=== PATIENT | female | born 1955 | race Caucasian/White ===

== ENCOUNTER 2019-10-28 13:02 | Outpatient (CLI) | payer OTHER, SELFPAY ==
--- NOTE | ~2019-10-28 | US_ITS ---
US breast LT limited 10/28/2019 14:08 Indication: Follow-up left breast ducts Procedure: High-resolution Limited ultrasound of the left breast Comparison: Comparison to multiple prior studies sequentially, with oldest reviewed study dated 07/24. Findings: Stable appearance to mildly prominent subareolar ducts, some of which contain debris. No matias spicious masses, calcifications or architectural distortion to suggest malignancy. Impression: 1: No sonographic evidence for malignancy. Stable appearance to mildly prominent subareolar ducts. BI-RADS CATEGORY 2 - BENIGN FINDINGS Routine yearly screening mammogram and regular clinical breast examination are recommended. Reviewed, dictated and finalized at location A. Impression: 1: No sonographic evidence for malignancy. Stable appearance to mildly prominen t subareolar ducts. BI-RADS CATEGORY 2 - BENIGN FINDINGS Routine yearly screening mammogram and regular clinical breast examination are recommended.
== END 2019-10-28 13:03 | disposition home or self-care (01) ==
DX: N64.89 Other specified disorders of breast (principal)
CPT/HCPCS: 76642

== ENCOUNTER 2020-09-04 11:15 | Outpatient (CLI) | payer OTHER, SELFPAY ==
--- NOTE | ~2020-09-04 | MMUS_ITS ---
EXAMINATION: MM diagnostic caio BI w caitlin, US breast LT complete HISTORY: Left axillary lump TECHNIQUE: Bilateral full field and left spot ML, MLO and craniocaudal 3-D tomosynthesis images were performed and synthetic 2-D images were generated. CAD analysis was submitted and interpreted. High r esolution complete left breast and left axillary ultrasound examination was performed. COMPARISON: 10/28/2019 limited left breast ultrasound 04/16/2020 diagnostic bilateral digital mammogram and limited left breast ultrasound examination BREAST PARENCHYMAL COMPOSITION: There are scattered areas of fibroglandular density. FINDINGS: MAMMOGRAPHIC FINDINGS: No interval suspicious mass, architectural distortion, malignant calcification, skin thickening or re traction or significant new or developing density since 04/16/2019 is detected. No suspicious left axi llary mass lesion is noted. ULTRASOUND: There is a lymph node in the axillary area at 1:00, measuring 5 x 7.4 mm, with thin uniform cortex, p rominent fatty hilum. Some prominent ducts are noted in the subareolar area but are diminished in prominence compared to pr ior examinations. No left breast or axillary suspicious mass or suspicious shadowing is detected. IMPRESSION: 1. Benign findings 2. No mammographic evidence of malignancy BI-RADS Category 2: Benign finding(s). Reviewed, dictated and finalized at location A. IMPRESSION: 1. Benign findings 2. No mammographic evidence of malignancy BI-RADS Category 2: Benign finding(s).
== END 2020-09-04 11:16 | disposition home or self-care (01) ==
DX: R92.8 Other abnormal and inconclusive findings on diagnostic imaging of breast (principal)
CPT/HCPCS: 76641; 77062; 77066; G0279

== ENCOUNTER 2020-11-11 13:14 | Outpatient (CLI) | payer OTHER, SELFPAY ==
--- NOTE | 2020-11-12 08:10 | PFT_ITS ---
This report was moved to the correct visit, [id number] on 11/27/20. Original report was signed by Gunner Fay MD 11/12/20 08. PFT Procedure Performed PFT Procedure Performed Spirometry with Pre/Post Bronchodilator Plethysmography (Lung Vol) Diffusing Cap (DLCO) Flow Vol Loop PFT Interpretation This is a pulmonary function test with pre and post-bronchodilator spirometry, plethysmography and diffusing capacity. The test was performed and results interpreted in accordance with the 2019 and 2005 ATS/ERS Task Force guidelines respectively using the Global Lung Function Initiative-2012 reference equations. Patient demonstrated good effort and cooperation. Reproducibility criteria were met. The quality of the pre bronchodilator spirometry maneuver was Grade B and post bronchodilator spirometry maneuver was Grade A. Findings: Spirometry: the contour the inspiratory and expiratory flow tracing are normal. The pre bronchodilator FVC is 2.00 L, 70% predicted. The pre bronchodilator FEV1 is 1.62 L, 72% predicted. The FEV1: FVC ratio was 81%. The post bronchodilator FVC is 1.96 L, representing a 2% decrease. The post bronchodilator FEV1 is 1.46 L, representing a 10% decrease. Plethysmography: The total lung capacity is 4.18 L, 89% predicted. Functional residual capacity is 2.06 L, 77% predicted. The residual volume is 2.04 L, 105% predicted. Diffusing capacity: The absolute diffusion capacity is 14.8, 73% predicted. The diffusing capacity corrected for alveolar volume is 5.00, 111% predicted. Impression: The spirometry is normal without evidence of an obstructive abnormality. The lung volumes are normal without evidence of and restrictive abnormality. The FVC and FEV1 are mildly decreased without an obstructive or restrictive abnormality. This is an abnormal but nonspecific finding. There is no significant improvement after inhaling a single dose of albuterol. The diffusing capacity is normal. There are no prior studies for comparison This dictation may have been done utilizing a voice recognition system. Attempts have been made to correct errors. However, there may be uncorrected grammatical, spelling, and recognition errors present. Report Initialized date/time: Gunner Fay MD 11/12/20809 Electronically signed by: Gunner Fay MD 11/12/20 0810 [facility]
--- NOTE | 2020-11-12 08:10 | PFT_ITS ---
This report was moved to the correct visit, [id number] on 11/27/20. Original report was signed by Gunner Fay MD 11/12/20 0810. ADDENDUM Disregard this report it was done in error. Addendum Documented By: Gunner Fay MD 11/27/20 1412 Addendum Signed By: <Electronically signed by Gunner Fay MD>11/27 1412 PFT Procedure Performed PFT Procedure Performed Spirometry with Pre/Post Bronchodilator Plethysmography (Lung Vol) Diffusing Cap (DLCO) Flow Vol Loop PFT Interpretation This is a pulmonary function test with pre and post-bronchodilator spirometry, plethysmography and diffusing capacity. The test was performed and results interpreted in accordance with the 2019 and 2005 ATS/ERS Task Force guidelines respectively using the Global Lung Function Initiative-2012 reference equations. Patient demonstrated good effort and cooperation. Reproducibility criteria were met. The quality of the pre bronchodilator spirometry maneuver was Grade B and post bronchodilator spirometry maneuver was Grade A. Findings: Spirometry: the contour the inspiratory and expiratory flow tracing are normal. The pre bronchodilator FVC is 2.00 L, 70% predicted. The pre bronchodilator FEV1 is 1.62 L, 72% predicted. The FEV1: FVC ratio was 81%. The post bronchodilator FVC is 1.96 L, representing a 2% decrease. The post bronchodilator FEV1 is 1.46 L, representing a 10% decrease. Plethysmography: The total lung capacity is 4.18 L, 89% predicted. Functional residual capacity is 2.06 L, 77% predicted. The residual volume is 2.04 L, 105% predicted. Diffusing capacity: The absolute diffusion capacity is 14.8, 73% predicted. The diffusing capacity corrected for alveolar volume is 5.00, 111% predicted. Impression: The spirometry is normal without evidence of an obstructive abnormality. The lung volumes are normal without evidence of and restrictive abnormality. The FVC and FEV1 are mildly decreased without an obstructive or restrictive abnormality. This is an abnormal but nonspecific finding. There is no significant improvement after inhaling a single dose of albuterol. The diffusing capacity is normal. There are no prior studies for comparison This dictation may have been done utilizing a voice recognition system. Attempts have been made to correct errors. However, there may be uncorrected grammatical, spelling, and recognition errors present. Report Initialized date/time: Gunner Fay MD 11/12/20809 Electronically signed by: Gunner Fay MD 11/12/20809 [facility]
== END 2020-11-11 13:15 | disposition home or self-care (01) ==
PROVIDERS: PCP Internal Medicine Pulmonary Disease; Visit Provider Internal Medicine Pulmonary Disease
DX: R06.00 Dyspnea, unspecified (principal)
CPT/HCPCS: 94060; 94726; 94729

== ENCOUNTER 2021-03-11 11:39 | Emergency (ER) | payer OTHER, SELFPAY ==
[2021-03-11 11:53] VITALS: BP 143/70; PULSE 84; RESP 18; TEMP 37.4; O2SAT 99
--- NOTE | 2021-03-11 12:16 | ED.URI ---
HPI - URI/Sore Throat General Chief Complaint: Upper Respiratory Infection Stated Complaint: Chest congestion Time Seen by Provider: 03/11/21 12:02 Source: patient and RN notes reviewed Mode of arrival: ambulatory Limitations: no limitations History of Present Illness HPI Narrative: Patient presents today complaining of a 5 to 6-day history of productive cough, sore throat, congestion. Denies nasal congestion, rhinorrhea, shortness of breath, loss of taste or smell. She has been using Sudafed, convincing, ibuprofen, and gargling with salt water. Reports symptoms have been improving slightly with these interventions. She has been vaccinated against COVID-19. She takes care of her with cancer at home and states she would like a COVID-19 test. MD elicited complaint: cough Related Data Home Medications Medication Instructions Recorded Confirmed cetirizine 10 mg tablet 10 mg PO DAILY 06/30/20 03/11/21 levothyroxine 75 mcg tablet 75 mcg PO DAILY 06/30/20 03/11/21 pantoprazole 40 mg tablet,delayed 40 mg PO QAM 06/30/20 03/11/21 release valacyclovir 500 mg tablet 500 mg PO DAILY 06/30/20 03/11/21 Allergies Allergy/AdvReac Type Severity Reaction Status Date / Time mycins upset stomach AdvReac Mild states Uncoded 03/11/21 11:59 mycins upset stomach Review of Systems Review of Systems: CONSTITUTIONAL: Denies body aches, fever, chills, or sweats. EYES: Denies visual changes, redness, or discharge. ENT: Denies rhinorrhea, congestion, or otalgia.+ Sore throat CARDIOVASCULAR: Denies chest pain, palpitations, or edema. RESPIRATORY: Denies dyspnea.+ Cough, chest congestion GASTROINTESTINAL: Denies abdominal pain, nausea, vomiting, or diarrhea. GENITOURINARY: Denies dysuria or hematuria. SKIN: Denies rash, itching, or wounds. MUSCULOSKELETAL: Denies back pain, joint pain, or myalgia. NEUROLOGIC: Denies headache, numbness, tingling, or weakness. PSYCH: Denies depression or anxiety. [facility] Past Medical History Medical History Herpesviral infection of urogenital system, unspecified Hypothyroidism, unspecified Needs flu shot Overweight (11/10/16) Plantar fasciitis of left foot Rash and nonspecific skin eruption Rhinitis, chronic Family History Family History Mother Patient's mother is in good health Father Patient's father is in good health Sibling Patient's sister is in good health Patient's brother is in good health Patient's sister is Social History Social History Smoking status: Never smoker Comments At time of signature, I have reviewed and agree with nursing past medical, surgical, social and family history unless otherwise noted. Please see nursing chart for further information. There is no relevant family history pertinent to the presenting complaint Exam Narrative: GENERAL: Well-appearing, well-nourished, and in no acute distress. HEAD: Normocephalic, atraumatic. EYES: EOMI. No redness or drainage. Conjunctivae normal. ENT: Mucous membranes pink and moist. Nares clear. No rhinorrhea. TMs normal bilaterally. Throat mildly erythematous without edema or exudate. Uvula midline. NECK: Normal AROM. Supple. No lymphadenopathy. CHEST: No respiratory distress. Clear to auscultation. HEART: Regular rate and rhythm. No murmur appreciated. Normal peripheral pulses. EXTREMITIES: Normal range of motion. No edema. SKIN: Warm, dry, no rash. Capillary refill normal. Normal skin turgor. NEURO: No focal deficits. Alert and oriented x3. Gait steady. PSYCH: Normal affect. No signs of depression or anxiety. Course Vital Signs Vital signs: Vital Signs Temperature 99.4 F 03/11/21 11:53 Pulse Rate 84 03/11/21 11:53 Respiratory Rate 18 03/11/21 11:53 Blood Pressure 143/70 H 02/24
== END 2021-03-11 12:49 | disposition home or self-care (01) ==
PROVIDERS: Emergency Provider Nurse Practitioner
DX: J40 Bronchitis, not specified as acute or chronic (principal); J06.9 Acute upper respiratory infection, unspecified; Z20.822 Contact with and (suspected) exposure to COVID-19; E03.9 Hypothyroidism, unspecified
CPT/HCPCS: 87426; 99213; C9803; G0463

== ENCOUNTER 2021-10-18 09:59 | Outpatient (CLI) | payer OTHER, SELFPAY ==
--- NOTE | ~2021-10-18 | MM_ITS ---
EXAMINATION: MM screening caio BI w caitlin HISTORY: Screening mammogram TECHNIQUE: Craniocaudal and mediolateral oblique 3-D tomosynthesis images were obtained and synthetic 2-D images were generated. CAD analysis was submitted and interpreted. COMPARISON: 09/04/2020 bilateral diagnostic mammography and complete left breast ultrasound BREAST PARENCHYMAL COMPOSITION: There are scattered areas of fibroglandular density. FINDINGS: There is no evidence of suspicious mass, calcification, or architectural distortion to sugg est malignancy in either breast. There has been no suspicious interval change. IMPRESSION: 1. No mammographic evidence of malignancy. 2. Recommend routine screening mammography in one year. BI-RADS Category 1: Negative Reviewed, dictated and finalized at location A.
== END 2021-10-18 10:00 | disposition home or self-care (01) ==
LOC: ANHIMG 10:01
DX: Z12.31 Encounter for screening mammogram for malignant neoplasm of breast (principal)
CPT/HCPCS: 77063; 77067

== ENCOUNTER 2022-05-13 07:56 | Outpatient (CLI) | payer MEDICARE, OTHER, SELFPAY ==
[2022-05-13 08:30] LABS: Appearance Urine Clear (Clear); Bilirubin Urine Negative (Negative); Blood Urine Negative (Negative); Color Urine Yellow (Yellow); Glucose Urine UA Negative (Negative); Ketones Urine Negative (Negative); Leukocyte Esterase Ur Trace LEU/UL (NEGATIVE); Nitrate Urine Negative (Negative); Protein Urine Negative (Negative); Specific Grav Ur 1.015 (1.001-1.035); Urobilinogen Urine 0.2 mg/dL (<2.0)
[2022-05-13 08:30] LABS: Hematocrit 44.3 % (37.0-47.0); Hemoglobin 14.5 g/dL (12.0-15.0); Mean Corpuscular HGB Conc 32.7 g/dl (32-36); Mean Corpuscular Hemoglobin 29.6 pg (26-34); Mean Corpuscular Volume 90.4 fl (80-100); Mean Platelet Volume 10.7 fl (7.4-10.4); Platelet Count Result 277 k/mm3 (150-375); Red Cell Distribution Width 13.3 % (11.5-14.5); White Blood Count 7.3 K/mm3 (4.5-10.0)
[2022-05-13 08:46] LABS: Mucus Urine Rare /lpf; RBC Urine 0-2 /hpf (0-2); Squamous Epithelial Cell Urine Rare /hpf (Few)
[2022-05-13 08:46] LABS: Alanine Aminotransferase 26 U/L (6-35); Albumin Level 4.4 g/dL (3.5-5.1); Alkaline Phosphatase 72 U/L (38-126); Anion Gap 4 mmol/L (8-16); Aspartate Amino Transferase 26 U/L (14-36); Bilirubin,Total 0.7 mg/dL (0.2-1.3); Blood Urea Nitrogen 13 mg/dL (7-17); Calcium 8.9 mg/dL (8.4-10.2); Carbon Dioxide 32 mmol/L (22-30); Chloride 102 mmol/L (98-107); Cholesterol 204 mg/dL (0-200); Estimated Glomerular Filt Rate > 60; Glucose 89 mg/dL (65-110); HDL Direct 46 mg/dL; Sodium 138 mmol/L (137-145); Triglycerides 121 mg/dL (<150)
[2022-05-13 08:57] LABS: LDL Cholesterol Direct 107 mg/dL
[2022-05-13 08:58] LABS: Add Urine Microscopic? YES
== END 2022-05-13 07:57 | disposition home or self-care (01) ==
PROVIDERS: PCP Family Medicine; Visit Provider Family Medicine
DX: R07.89 Other chest pain (principal); I10 Essential (primary) hypertension; E03.9 Hypothyroidism, unspecified; E78.5 Hyperlipidemia, unspecified
CPT/HCPCS: 36415; 80053; 80061; 81001; 84443; 85027

== ENCOUNTER 2022-08-18 10:21 | Emergency (ER) | payer MEDICARE, OTHER, SELFPAY ==
[2022-08-18 10:31] VITALS: BP 134/82; PULSE 90; RESP 18; TEMP 37.4; O2SAT 100
--- NOTE | 2022-08-18 10:42 | ED.URI ---
HPI - URI/Sore Throat General Chief Complaint: Upper Respiratory Infection Stated Complaint: unknown Source: patient and RN notes reviewed Mode of arrival: ambulatory Limitations: no limitations History of Present Illness HPI Narrative: 67-year-old female presents concern for 4 day history of sneezing, runny nose, postnasal drainage, sinus congestion, facial and forehead pain, ear pain. Reports low-grade temperature. Reports she took multi symptom cold medicines and Sudafed with some relief of her facial pain. She reports she took a COVID test that was negative MD elicited complaint: nasal congestion and sinus pain Related Data Home Medications Medication Instructions Recorded Confirmed cetirizine 10 mg tablet (Zyrtec) 10 mg PO DAILY 06/30/20 08/18/22 levothyroxine 75 mcg tablet 75 mcg PO DAILY 06/30/20 08/18/22 (Synthroid) pantoprazole 40 mg tablet,delayed 40 mg PO QAM 06/30/20 08/18/22 release valacyclovir 500 mg tablet 500 mg PO DAILY 06/30/20 08/18/22 Allergies Allergy/AdvReac Type Severity Reaction Status Date / Time mycins upset stomach AdvReac Mild states Uncoded 08/18/22 10:35 mycins upset stomach Review of Systems Review of Systems: CONSTITUTIONAL: Reports malaise, low-grade fever. EYES: Denies visual changes, redness, or discharge. ENT: Reports rhinorrhea, congestion, sinus pain, otalgia CARDIOVASCULAR: Denies chest pain, palpitations, or edema. RESPIRATORY: Reports cough. Denies dyspnea. GASTROINTESTINAL: Denies abdominal pain, nausea, vomiting, diarrhea SKIN: Denies rash or itching. MUSCULOSKELETAL: Denies myalgia. NEUROLOGIC: Reports headache. All systems reviewed & are unremarkable except as noted in HPI and below [facility] Past Medical History Medical History Herpesviral infection of urogenital system, unspecified Hypothyroidism, unspecified Kidney stones Needs flu shot Overweight (02/04/16) Plantar fasciitis of left foot Rash and nonspecific skin eruption Rhinitis, chronic Surgical History Surgical History History of delivery x2 History of conization of cervix Family History Family History Mother Hairy cell leukemia Hypertension Father Patient's father is in good health Sibling Hypertension Diabetes mellitus Social History Social History Smoking status: Never smoker Alcohol intake: never Substance use: never Living arrangements: with family Occupation/Education: retired Gender identity (if verbalized by the patient): Female Sexual Orientation (if Verbalized by the Patient): Straight or Heterosexual Spiritual care concerns: No Comments At time of signature, agree with nursing past medical, surgical, social and family history. There is no relevant family history pertinent to the presenting complaint Exam Narrative: GENERAL: Well-appearing, well-nourished, and in no acute distress. HEAD: Normocephalic EYES: PERRLA, conjunctivae clear ENT: Nares clear, turbinates edematous and erythematous, clear discharge. Mucous membranes moist. Right tM pearly mullen with dull light reflex, left TM erythematous; no tragal tenderness. Oropharynx not erythematous without lesions. Tonsils not enlarged and without exudate, no drooling, no hoarseness, no trismus, uvula midline. NECK: Supple. No lymphadenopathy CHEST: Clear to auscultation, breath sounds equal. No wheezing, rhonchi, rales, or stridor. No respiratory distress, speaks in full sentences. HEART: Regular rate and rhythm. No murmur heard. SKIN: Warm, dry, no rash. NEURO: Alert and oriented x3. PSYCH: Normal mood and affect Course Course Emergency Course: Patient is aware of diagnosis, understands and agrees to treatment plan. Anticipatory guidance given.
== END 2022-08-18 11:05 | disposition home or self-care (01) ==
PROVIDERS: Emergency Provider Nurse Practitioner; PCP Family Medicine
DX: J06.9 Acute upper respiratory infection, unspecified (principal); H66.002 Acute suppurative otitis media without spontaneous rupture of ear drum, left ear; E03.9 Hypothyroidism, unspecified
CPT/HCPCS: 99213; G0463

== ENCOUNTER 2022-12-21 14:16 | Outpatient (CLI) | payer MEDICARE, OTHER, SELFPAY ==
[2022-12-21 15:48] LABS: Alanine Aminotransferase 43 U/L (6-35); Albumin Level 4.7 g/dL (3.5-5.1); Alkaline Phosphatase 65 U/L (38-126); Anion Gap 7 mmol/L (8-16); Aspartate Amino Transferase 36 U/L (14-36); Bilirubin,Total 0.5 mg/dL (0.2-1.3); Blood Urea Nitrogen 15 mg/dL (7-17); Calcium 9.3 mg/dL (8.4-10.2); Carbon Dioxide 29 mmol/L (22-30); Chloride 102 mmol/L (98-107); Estimated Glomerular Filt Rate > 60; Glucose 88 mg/dL (65-110); Sodium 138 mmol/L (137-145); Thyroid Stimulating Hormone 0.675 uIU/mL (0.465-4.680)
== END 2022-12-21 14:17 | disposition home or self-care (01) ==
LOC: ANHLAB 14:17
PROVIDERS: PCP Family Medicine; Visit Provider Family Medicine
DX: E03.9 Hypothyroidism, unspecified (principal); I10 Essential (primary) hypertension
CPT/HCPCS: 36415; 80053; 84443

== ENCOUNTER 2023-01-05 10:02 | Outpatient (CLI) | payer MEDICARE, OTHER, SELFPAY ==
--- NOTE | ~2023-01-05 | MM_ITS ---
EXAMINATION: MM screening caio BI w caitlin HISTORY: Screening mammogram TECHNIQUE: Craniocaudal and mediolateral oblique 3-D tomosynthesis images were obtained and synthetic 2-D images were generated. CAD analysis was submitted and interpreted. COMPARISON: 10/18/2021, 09/04/2020, 04/16/2019 BREAST PARENCHYMAL COMPOSITION:There are scattered areas of fibroglandular density. FINDINGS: No suspicious mass, calcification, or architectural distortion are identified in either jamarcus ast to suggest malignancy. There has been no suspicious interval change. IMPRESSION: No mammographic evidence of malignancy. Recommend routine screening mammography in one year. BI-RADS Category 1: Negative Reviewed, dictated and finalized at location .
== END 2023-01-05 10:03 | disposition home or self-care (01) ==
PROVIDERS: PCP Family Medicine; Visit Provider Nurse Practitioner
DX: Z12.31 Encounter for screening mammogram for malignant neoplasm of breast (principal)
CPT/HCPCS: 77063; 77067

== ENCOUNTER 2023-02-21 09:42 | Outpatient (CLI) | payer MEDICARE, OTHER, SELFPAY ==
--- NOTE | ~2023-02-21 | DEXA_ITS ---
Bone Density Report Name: NAYELI RICO Age: 68 Sex: Female Ethnicity: White Date of : 1955 Indication: postmenopausal; screening for osteoporosis; height loss; Referring Provider: OFE, CALOS Study: Bone densitometry was performed. Exam Date: February 21, 2023 Accession number: [id number] Bone Density: Region BMD T-score Z-score Classification AP Spine(L1, L4) 0.840 -1.8 0.0 Osteopenia Femoral Neck (Left) 0.595 -2.3 -0.7 Osteopenia Total Hip (Left) 0.792 -1.2 0.1 Osteopenia Femoral Neck (Right) 0.576 -2.5 -0.9 Osteoporosis Total Hip (Right) 0.731 -1.7 -0.5 Osteopenia Total Hip Mean 0.761 -1.5 -0.2 Osteopenia World Health Organization criteria for BMD impression classify patients as: Normal (T-score at or above -1.0), Osteopenia (T-score between -1.0 and -2.5), or Osteoporosis (T-score at or below -2.5). 10-year Fracture Risk: FRAX not reported because: Some T-score for Spine Total or Hip Total or Femoral Neck at or below -2.5 Clinical Information Provided by Patient: Has used the following medications: Vitamin D Patient maximum height was 63 Menopause Age: 55 No regular weight bearing exercise Does not regularly consume dairy products Drinks caffeinated beverages Onset of menses at age 17 Number of children 2 Impression: The patient has osteoporosis, based on the Right Femoral Neck T-score. Discussion: INCREASED RISK OF FRACTURE. BONE DENSITY IS UNDESIRABLY LOW AT ONE OR MORE SKELETAL SITES, CONSISTENT WITH POSTMENOPAUSAL OSTEOPOROSIS. This patient's lowest T-score meets the World Health Organization's (WHO) criteria for osteoporosis at one or more sites (T-score -2.5 or below). In untreated patients, the risk of osteoporotic fracture increases approximately two-fold for each 1.0 SD decrease in T-score. Low bone density is not the only risk factor for fracture; also consider factors such as patient's age, frailty or poor health, risk of falling, risk of injury, previous osteoporotic fracture, family history of osteoporosis, cigarette smoking, low body weight, etc. Not everyone with low bone mineral density has osteoporosis; osteomalacia and other metabolic bone disorders should also be considered. Patients who have osteoporosis should be evaluated for specific diseases and conditions (secondary causes) that may cause or contribute to bone loss. The [place] [employer]ocrinologists (AACE) and National Osteoporosis Foundation (NOF) recommend pharmacologic intervention for all postmenopausal women whose T-score is in this range. The patient should follow a healthful lifestyle (good nutrition with adequate calcium and vitamin D, and appropriate weight-bearing exercise). Follow-Up: Consider a repeat BMD and Vertebral Fracture Assessment (VFA) exam in 2 ye
== END 2023-02-21 09:43 | disposition home or self-care (01) ==
PROVIDERS: PCP Family Medicine; Visit Provider Nurse Practitioner
DX: Z78.0 Asymptomatic menopausal state (principal); M85.88 Other specified disorders of bone density and structure, other site; M85.852 Other specified disorders of bone density and structure, left thigh; M85.851 Other specified disorders of bone density and structure, right thigh; M81.0 Age-related osteoporosis without current pathological fracture
CPT/HCPCS: 77080

== ENCOUNTER 2023-02-24 00:51 | Day surgery (SDC) | payer MEDICARE, OTHER, SELFPAY ==
[2023-02-08 09:13] VITALS: BMI 27.3
--- NOTE | 2023-02-22 09:46 | SUR.PREOP ---
Patient called regarding upcoming procedure. Reviewed preop instructions, appointment times, and procedure prep.
--- NOTE | 2023-02-23 14:01 | PM.HPGS ---
History of Present Illness History of Present Illness Consent: Risks, benefits, and alternatives have been discussed and questions answered. Patient agrees to proceed with procedure. Chief complaint: neoplasm screening Narrative: Alana Mejia is a 68 year old female here for colon cancer screening.She has had polyps removed in the past. Last colonoscopy was 3 years ago. Her sister who has annual colonoscopies for polyps actually was recently found to have colon cancer. Review of Systems Review of Systems: All systems reviewed & are unremarkable except as noted in HPI and below PMF[facility] Past Medical History Medical History Herpesviral infection of urogenital system, unspecified Hypertension Hypothyroidism, unspecified Kidney stones Needs flu shot Overweight (02/04/16) Plantar fasciitis of left foot Rash and nonspecific skin eruption Rhinitis, chronic Surgical History Surgical History History of delivery x2 History of conization of cervix Family History Family History Mother Hairy cell leukemia Hypertension Father Patient's father is in good health Sibling Hypertension Diabetes mellitus Social History Social History Smoking status: Never smoker Alcohol intake: never Substance use: never Substance use type: does not use Living arrangements: with family Occupation/Education: retired Gender identity (if verbalized by the patient): Female Sexual Orientation (if Verbalized by the Patient): Straight or Heterosexual Spiritual care concerns: No Meds Home Medications and Allergies Home Medications Medication Instructions Recorded Confirmed Type cetirizine 10 mg tablet (Zyrtec) 10 mg PO DAILY 06/30/20 02/08/23 History levothyroxine 75 mcg tablet 75 mcg PO DAILY 06/30/20 02/08/23 History (Synthroid) pantoprazole 40 mg tablet,delayed 40 mg PO QAM 06/30/20 02/08/23 History release valacyclovir 500 mg tablet 500 mg PO DAILY 06/30/20 02/08/23 History albuterol sulfate 90 mcg/actuation 1 puff inhalation DAILY PRN 02/08/23 02/08/23 History aerosol inhaler Shortness Of Breath Or Wheezing ascorbate calcium (vitamin C) 500 500 mg PO DAILY 02/08/23 02/08/23 History mg tablet cholecalciferol (vitamin D3) 50 50 mcg PO DAILY 02/08/23 02/08/23 History mcg (2,000 unit) capsule (Vitamin D3) Allergies Allergy/AdvReac Type Severity Reaction Status Date / Time mycins upset stomach AdvReac Mild states Uncoded 02/08/23 09:08 mycins upset stomach Exam Resp: Auscultation: clear to auscultation bilaterally Cardio: Rate: regular rate Rhythm: regular rhythm GI: GI Palp: Yes Soft to palpation and No Tenderness to palpation present (GI) Assessment and Plan Assessment and plan (1) Colon cancer screening: Code(s): Z12.11 - Encounter for screening for malignant neoplasm of colon Status: Acute Assessment and Plan: Colonoscopy with possible biopsy or polypectomy or cautery or injection of substances.
[2023-02-24 09:33] VITALS: BP 148/80; PULSE 95; RESP 20; TEMP 36.9; O2SAT 98; BMI 27.3
[2023-02-24] MEDS: LACTATED RINGERS 1,000 ML 150 ML IV CONT (09:46)
--- NOTE | 2023-02-24 09:48 | WPDANESEPPF ---
Anes - Initial Pre Proc Eval Procedure: Operation Date: 02/24/23 10:30 Proposed Procedures p Screening Colonoscopy - Fernando Bullard MD Date/Time: 02/24/23 09:48 Surgeon: Fernando Bullard MD Pre Op Diagnosis: neoplasm screening Patient Data Age: 68 Gender: F Height: 1.57 m Weight: 67.8 kg Last Vital Signs Temp 98.4 F 02/24/23 09:33 Pulse 95 02/24/23 09:33 Resp 20 02/24/23 09:33 BP 148/80 H 02/24/23 09:33 Pulse Ox 98 02/24/23 09:33 O2 Del Method Room Air 02/24/23 09:33 Allergies Allergy/AdvReac Type Severity Reaction Status Date / Time mycins upset stomach AdvReac Mild states Uncoded 02/08/23 09:08 mycins upset stomach Home Medications Medication Instructions Recorded Confirmed Type cetirizine 10 mg tablet (Zyrtec) 10 mg PO DAILY 06/30/20 02/08/23 History levothyroxine 75 mcg tablet 75 mcg PO DAILY 06/30/20 02/08/23 History (Synthroid) pantoprazole 40 mg tablet,delayed 40 mg PO QAM 06/30/20 02/08/23 History release valacyclovir 500 mg tablet 500 mg PO DAILY 06/30/20 02/08/23 History albuterol sulfate 90 mcg/actuation 1 puff inhalation DAILY PRN 02/08/23 02/08/23 History aerosol inhaler Shortness Of Breath Or Wheezing ascorbate calcium (vitamin C) 500 500 mg PO DAILY 02/08/23 02/08/23 History mg tablet cholecalciferol (vitamin D3) 50 50 mcg PO DAILY 02/08/23 02/08/23 History mcg (2,000 unit) capsule (Vitamin D3) Patient hx anesthesia problems: none Family hx anesthesia problems: none Results Review: All pre-operative results and documents have been reviewed as part of the pre-operative evaluation. [facility] Past Medical History Medical History (Updated 02/23/23 @ 14:01 by Fernando Bullard MD) Herpesviral infection of urogenital system, unspecified Hypertension Hypothyroidism, unspecified Kidney stones Needs flu shot Overweight (02/04/16) Plantar fasciitis of left foot Rash and nonspecific skin eruption Rhinitis, chronic Surgical History Surgical History History of delivery x2 History of conization of cervix Family History Family History Mother Hairy cell leukemia Hypertension Father Patient's father is in good health Sibling Hypertension Diabetes mellitus Social History Social History Smoking status: Never smoker Alcohol intake: never Substance use: never Substance use type: does not use Living arrangements: with family Occupation/Education: retired Gender identity (if verbalized by the patient): Female Sexual Orientation (if Verbalized by the Patient): Straight or Heterosexual Spiritual care concerns: No Anes - Eval Final PreProcedure Day of Procedure 02/24/23 09:48 Patient weight: normal Heart: regular rate and rhythm Lungs: clear to auscultation Airway: Mallampati scale class II Neurological: alert and oriented Last oral intake: >/= 8 hours ASA classification: II Emergent: no Anesthetic plan: proceed Anesthesia type and monitoring: general GIVS and standard monitoring Results Review: All pre-operative results and documents have been reviewed as part of the pre-operative evaluation. Informed Consent: The patient's anesthetic plan and its attendant risks and benefits were discussed with the patient/family/POA. Questions were solicited and answers provided to the satisfaction of the patient/family/POA.
[2023-02-24 10:35] VITALS: BP 124/76; PULSE 81; RESP 18; O2SAT 97
[2023-02-24 10:45] VITALS: BP 129/68; PULSE 92; RESP 20; O2SAT 97
[2023-02-24 10:55] VITALS: BP 133/71; PULSE 74; RESP 18; O2SAT 100
== END 2023-02-24 11:03 | disposition home or self-care (01) ==
PROVIDERS: PCP Family Medicine; Visit Provider Internal Medicine Gastroenterology
PROC: 0DJD8ZZ Inspection of Lower Intestinal Tract, Via Natural or Artificial Opening Endoscopic (ICD-10-PCS; CPT 45378; principal; 2023-02-24 10:30)
DX: Z12.11 Encounter for screening for malignant neoplasm of colon (principal); K57.30 Diverticulosis of large intestine without perforation or abscess without bleeding; K64.8 Other hemorrhoids; I10 Essential (primary) hypertension; E03.9 Hypothyroidism, unspecified; J31.0 Chronic rhinitis; Z79.51 Long term (current) use of inhaled steroids; Z86.010 Personal history of colon polyps; Z80.0 Family history of malignant neoplasm of digestive organs
CPT/HCPCS: G0105; J2704; J7120

== ENCOUNTER 2023-04-13 08:31 | Outpatient (CLI) | payer MEDICARE, OTHER, SELFPAY ==
[2023-04-13 09:20] LABS: Hematocrit 44.7 % (37.0-47.0); Hemoglobin 14.4 g/dL (12.0-15.0); Mean Corpuscular HGB Conc 32.2 g/dl (32-36); Mean Corpuscular Hemoglobin 29.4 pg (26-34); Mean Corpuscular Volume 91.4 fl (80-100); Mean Platelet Volume 11.1 fl (7.4-10.4); Platelet Count Result 273 k/mm3 (150-375); Red Blood Count 4.89 M/mm3 (4.2-5.4); Red Cell Distribution Width 12.6 % (11.5-14.5); White Blood Count 5.6 K/mm3 (4.5-10.0)
[2023-04-13 09:24] LABS: Appearance Urine Clear (Clear); Bacteria Urine None Seen /hpf; Bilirubin Urine Negative (Negative); Blood Urine Negative (Negative); Color Urine Yellow (Yellow); Glucose Urine UA Negative (Negative); Ketones Urine Negative (Negative); Leukocyte Esterase Ur Trace LEU/UL (NEGATIVE); Nitrate Urine Negative (Negative); Non Pathogenic Casts 0-2; Protein Urine Negative (Negative); RBC Urine 0-2 /hpf (0-2); Specific Grav Ur 1.014 (1.001-1.035); Squamous Epithelial Cell Urine None seen /hpf (Few); Urobilinogen Urine 0.2 mg/dL (<2.0); WBC Urine 0-5 /hpf (0-3)
[2023-04-13 09:25] LABS: Add Urine Microscopic? YES
[2023-04-13 09:30] LABS: Alanine Aminotransferase 25 U/L (6-35); Albumin Level 4.4 g/dL (3.5-5.1); Alkaline Phosphatase 72 U/L (38-126); Anion Gap 6 mmol/L (8-16); Aspartate Amino Transferase 28 U/L (14-36); Bilirubin,Total 0.7 mg/dL (0.2-1.3); Blood Urea Nitrogen 15 mg/dL (7-17); Calcium 9.4 mg/dL (8.4-10.2); Carbon Dioxide 32 mmol/L (22-30); Chloride 102 mmol/L (98-107); Cholesterol 205 mg/dL (0-200); Estimated Glomerular Filt Rate > 60; Glucose 92 mg/dL (65-110); HDL Direct 42 mg/dL; Sodium 140 mmol/L (137-145); Triglycerides 150 mg/dL (<150)
[2023-04-13 09:40] LABS: LDL Cholesterol Direct 117 mg/dL
== END 2023-04-13 08:32 | disposition home or self-care (01) ==
LOC: ANHLAB 08:36
PROVIDERS: PCP Family Medicine; Visit Provider Family Medicine
DX: E78.5 Hyperlipidemia, unspecified (principal); I10 Essential (primary) hypertension; R79.89 Other specified abnormal findings of blood chemistry; Z00.00 Encounter for general adult medical examination without abnormal findings; K21.9 Gastro-esophageal reflux disease without esophagitis
CPT/HCPCS: 36415; 80053; 80061; 81001; 84443; 85027

== ENCOUNTER 2023-10-24 09:38 | Outpatient (CLI) | payer MEDICARE, OTHER, SELFPAY | END 2023-10-24 09:39 | disposition home or self-care (01) | LOC: ANHLAB 09:41 | PROVIDERS: PCP Family Medicine; Visit Provider Family Medicine | DX: E03.9 Hypothyroidism, unspecified (principal); I10 Essential (primary) hypertension | CPT/HCPCS: 36415; 84443 ==

== ENCOUNTER 2024-02-01 14:21 | Outpatient (CLI) | payer MEDICARE, OTHER, SELFPAY ==
--- NOTE | ~2024-02-01 | MM_ITS ---
EXAMINATION: MM screening caio BI w caitiln HISTORY: Screening TECHNIQUE: Craniocaudal and mediolateral oblique 3-D tomosynthesis images were obtained and synthetic 2-D images were generated. CAD analysis was submitted and interpreted. COMPARISON: Comparison to multiple prior studies sequentially, with oldest reviewed study dated 06/19. BREAST PARENCHYMAL COMPOSITION: Not dense: There are scattered areas of fibroglandular density. FINDINGS: There are developing asymmetries in the periareolar location of the left breast. The right breast is stable without evidence for malignancy. IMPRESSION: 1. Developing left breast asymmetries. 2. Additional mammographic views and possible breast ultrasound are recommended. BI-RADS Category 0: Incomplete: Needs additional imaging evaluation. Reviewed, dictated and finalized at location B. LFISH DREDGE OPERATOR IMPRESSION: 1. Developing left breast asymmetries. 2. Additional mammographic views and possible breast ultrasound are recommended . BI-RADS Category 0: Incomplete: Needs additional imaging evaluation.
== END 2024-02-01 14:22 | disposition home or self-care (01) ==
PROVIDERS: PCP Family Medicine; Visit Provider Nurse Practitioner
DX: Z12.31 Encounter for screening mammogram for malignant neoplasm of breast (principal); R92.8 Other abnormal and inconclusive findings on diagnostic imaging of breast
CPT/HCPCS: 77063; 77067

== ENCOUNTER 2024-02-27 13:16 | Outpatient (CLI) | payer MEDICARE, OTHER, SELFPAY ==
--- NOTE | ~2024-02-27 | MMUS_ITS ---
EXAMINATION: US breast LT complete, MM diagnostic caio LT w caitlin HISTORY: Palpable breast abnormality. TECHNIQUE: Additional 3-D tomosynthesis images of the left breast were performed and synthetic 2-D im ages were generated. CAD analysis was submitted and interpreted. High resolution complete left breast ultrasound was performed. COMPARISON: Comparison to multiple prior studies sequentially, with oldest reviewed study dated 09/04. BREAST PARENCHYMAL COMPOSITION: Not dense: There are scattered areas of fibroglandular density. FINDINGS: MAMMOGRAPHIC FINDINGS: No suspicious masses, calcifications or architectural distortion in the left breast to suggest malign suha. ULTRASOUND: Complete US of all 4 quadrants of the breast/s and retroareolar region was reviewed. There are mildly prominent subareolar ducts. No suspicious masses to suggest malignancy. IMPRESSION: 1. No evidence for malignancy in the left breast. 2. Routine yearly screening mammogram and regular clinical breast examination are recommended. BI-RADS Category 2: Benign finding(s). Reviewed, dictated and finalized at location B. ATIONS ARCHITECT IMPRESSION: 1. No evidence for malignancy in the left breast. 2. Routine yearly screening mammogram and regular clinical breast examination a re recommended. BI-RADS Category 2: Benign finding(s).
== END 2024-02-27 13:17 | disposition home or self-care (01) ==
LOC: ANHIMG 13:17
PROVIDERS: PCP Family Medicine; Visit Provider Obstetrics & Gynecology Gynecology
DX: R92.8 Other abnormal and inconclusive findings on diagnostic imaging of breast (principal)
CPT/HCPCS: 76641; 77061; 77065; G0279

== ENCOUNTER 2024-05-29 07:27 | Outpatient (CLI) | payer MEDICARE, OTHER, SELFPAY ==
--- OUTSIDE RECORDS SUMMARY | 2024-05-29 07:30 | XMS_ITS | Clinical Summary ---
Author Organization [facility] Address [address] [place] [address] Care Team Providers Care Application Project Leader Name Role Phone Ilia Granados MD Primary Care Provider [phone] Source Comments [facility],non-owned Affiliates and Associated Physician Practices is amultiple site organization consisting of ambulatory clinics and hospital sitesin [place], [place], [place] and [place]. This disclosure is being madepursuant to the Care Everywhere program and may not contain all information available regarding this patient. Last updated 17.[facility] Allergies Active Allergy Reactions Criticality Noted Date Comments Erythromycin Other 02/06/2022 Medications * Be aware that medications may not be up to date on this document. Alwaysverify current medications with the patient. Medication Sig Dispensed Refills Start Date End Date Status acetaminophen (Tylenol) 325 MG tablet Take 2 (two) tablets by mouth every 6 hours as needed Active albuterol HFA (Proventil; Ventolin; Proair) 108 (90 Base) MCG/ACT inhaler 02/06/2022 Active cetirizine (ZyrTEC) 10 MG tablet May cause drowsiness.Obtain advice for OTCs. 10/03/2022 Active Cholecalciferol 50 MCG (2000 UT) Take 1 (one) tablet by mouth once daily Active ibuprofen (Motrin) 200 MG tablet Take 1 (one) tablet by mouth every 6 hours as needed Active influenza subunit quad (Flucelvax Quadrivalent) 0.5 ML injection 12/08/2021 Active levothyroxine (Synthroid) 75 MCG tablet Take on empty stomach.Take with plenty of water.Be careful if taking OTCs.Take or use exactly as directed. 04/07/2022 Active lisinopril (Prinivil; Zestril) 10 MG tablet 10/05/2022 Act jaquelin Tmsvhnph-Lapzzdnkp-Fws ameth (Maxitrol) 0.1 % ophthalmic ointment 08/13/2021 Activ e pantoprazole EC (Protonix) 40 MG tablet 10/05/2022 Active pseudoephedrine (Sudafed) 30 MG tablet Take 1 (one) tablet by mouth every 4 hours as needed Active Simethicone (Gas-X) 125 MG chew tablet Take 1 (one) tablet by mouth every 6 hours as needed Active valACYclovir (Valtrex) 500 MG tablet 10/05/2022 Active Active Problems No known active problems Family History Medical History Relation Name Comments Cancer - Skin, Melanoma Father Cancer - Colon Maternal Aunt Rectum Cance r Cancer - Lung Maternal Uncle Cancer - Pancreatic Maternal Uncle Leukemia Mother Hairy Cell Leuk emia Relation Name Status Comments Father Maternal Aunt Alive Maternal Uncle Alive Mother Social History Tobacco Use Types Packs/Day Years Used Date Smoking Tobacco: Never Smokeless Tobacco: Never Tobacco Cessation:Counseling Given: No Alcohol Use Standard Drinks/Week Comments Never 0 (1 standard drink = 0.6 oz pur e alcohol) PHQ-2 Answer Date Recorded PHQ2 TOTAL SCORE 0 10/12/2022 Sex and Gender Information Value Date Recorded Sex Assigned at Not on file Gender Identity Not on file Sexual Orientation Not on file Last Filed Vital Signs Vital Sign Reading Time Taken Comments Blood Pressure 144/82 10/12/2022 1:06 PM CDT Pulse - - Temperature - - Respiratory Rate - - Oxygen Saturation - - Inhaled Oxygen Concentration - - Weight 68.6 kg (151 lb 3.2 oz) 10/12/2022 1:06 P M CDT Height 157.5 cm (5' 2 ) 10/12/2022 1:06 PM CDT Body Mass Index 27.65 10/12/2022 1:06 PM CDT Plan of Treatment Health Maintenance Due Date Last Done Comments BONE DENSITY TESTING 1955 COLOGUARD (AGES 45-75) - COLON CA SCREENING 1957 COLON MONITORING 1957 COLONOSCOPY - COLON CA SCREENING 1957 CT COLONOGRAPHY - COLON CA SCREENING 1957 Colorectal Cancer Screening 1957 FIT - COLON CA SCREENING 1957 FLEX SIG - COLON CA SCREENING 1957 LIPID TESTING 1957 MAMMOGRAM 1957 MEDICARE AWV 12 MONTHS 1957 HEPATITIS C SCREENING 01/15/1975 DTAP/TDAP/TD VACCINES (1 - Tdap) 01/20/1976 PNEUMOCOCCAL VACCINE 50+ (1 of 1 - PCV) 2007 ZOSTER VACCINE (1 of 2) 2007 SCREENING FOR DIABETES 10/12/2022 COVID-19 VACCINE ( season) 2023 12/19/2021, 04/11/2021, 07/13/2020, Additional history exists INFLUENZA VACCINE (#1) 2023 12/08/2021, 2019 DEPRESSION SCREENING 03/27/2024 10/12/2022 Respiratory Syncytial Virus (RSV) Vaccine Pt: or over 60 yrs (1 - 1-dose 75+ series) 01/20/2032 HEPATITIS B VACCINE Aged Out No longe r eligible based on patient's age to complete this topic HIB VACCINE Aged Out No longer eligi ble based on patient's age to complete this topic HPV VACCINE Aged Out No longer eligi ble based on patient's age to complete this topic MENINGOCOCCAL (Group B) VACCINE Aged Out No longer eligible based on patient's age to complete this topic MENINGOCOCCAL VACCINE Aged Out No mendoza mike eligible based on patient's age to complete this topic Care Teams Application Project Leader Relationship Specialty Start Date End Date Ilia Granados MD [address] [place] [address] PCP - General Family Medicine 10/12/22
--- OUTSIDE RECORDS SUMMARY | 2024-05-29 07:30 | XMS_ITS | Patient Health Summary ---
Author Organization [facility] [employer] Address [address] [place] [address] Care Team Providers Care Wildland Fire Operations Specialist Name Role Phone Ilia Granados MD Primary Care Provider Note from [facility],non-owned Affiliates and Associated Physician Practices is amultiple site organization consisting of ambulatory clinics and hospital sitesin [place], [place], [place] and [place]. This disclosure is being madepursuant to the Care Everywhere program and may not contain all information available regarding this patient. Last updated 17.[facility] Allergies * Erythromycin(Other) Medications * Be aware that medications may not be up to date on this document. Alwaysverify current medications with the patient. * acetaminophen (Tylenol) 325 MG tablet Take 2 (two) tablets by mouth every 6 hours as needed * albuterol HFA (Proventil; Ventolin; Proair) 108 (90 Base) MCG/ACT inhaler (Started 02/06/2022) * cetirizine (ZyrTEC) 10 MG tablet(Started 10/03/2022) May cause drowsiness.Obtain advice for OTCs. * Cholecalciferol 50 MCG (2000 UT) Take 1 (one) tablet by mouth once daily * ibuprofen (Motrin) 200 MG tablet Take 1 (one) tablet by mouth every 6 hours as needed * influenza subunit quad (Flucelvax Quadrivalent) 0.5 ML injection(Started 12/08/2021) * levothyroxine (Synthroid) 75 MCG tablet(Started 04/07/2022) Take on empty stomach.Take with plenty of water.Be careful if taking OTCs.Take or use exactly as directed. * lisinopril (Prinivil; Zestril) 10 MG tablet(Started 10/05/2022) * Hknskxof-Yvvkvwztn-Qptsqmvz (Maxitrol) 0.1 % ophthalmic ointment(Started 08/13/2021) * pantoprazole EC (Protonix) 40 MG tablet(Started 10/05/2022) * pseudoephedrine (Sudafed) 30 MG tablet Take 1 (one) tablet by mouth every 4 hours as needed * Simethicone (Gas-X) 125 MG chew tablet Take 1 (one) tablet by mouth every 6 hours as needed * valACYclovir (Valtrex) 500 MG tablet(Started 10/05/2022) Active Problems No known active problems Social History Tobacco Use Types Packs/Day Years [...] Mass Index 27.65 10/12/2022 1:06 PM CDT Care Teams Wildland Fire Operations Specialist Relationship Specialty Start Date End Date Ilia Granados MD [address] [place] [address] PCP - General Family Medicine 10/12/22
--- OUTSIDE RECORDS SUMMARY | 2024-05-29 07:30 | XMS_ITS | Referral Summary ---
Author Organization [facility] [email or web address] Address [address] [place] [address] Care Team Providers Care National Van Truck Driver Name Role Phone Ilia Granados MD Primary Care Provider [phone] [facility],non-owned Affiliates and Associated Physician Practices is amultiple site organization consisting of ambulatory clinics and hospital sitesin [place], [place], [place] and [place]. This disclosure is being madepursuant to the Care Everywhere program and may not contain all information available regarding this patient. Last updated 17.[facility] Allergies Active Allergy Reactions Criticality Noted Date [...] Zestril) 10 MG tablet 10/05/2022 Act jaquelin Apnnutfj-Xtwbmffta-Vgu ameth (Maxitrol) 0.1 % ophthalmic ointment 08/13/2021 [...] Active Active Problems No known active problems Social [...] 10/12/2022 1:06 PM CDT Plan of Treatment Not on file Care Teams National Van Truck Driver Relationship Specialty Start Date End Date Ilia Granados MD [address] [place] [address] PCP - General Family Medicine 10/12/22
--- OUTSIDE RECORDS SUMMARY | 2024-05-29 07:30 | XMS_ITS | Clinical Summary ---
Author Organization [facility] Address [facility] [facility] [address] [place] [address] Care Team Providers Care Technical Marketing Engineer Name Role Phone Socorro CAMACHO MD, Leonel Arboleda Primary Care Provid er Nicki Morel MD Unavailable Allergies No known active allergies Medications cholecalciferol (VITAMIN D-3) 2000 unit tablet 11/01/2019 Active Synthroid 75 mcg tablet 11/01/2019 Active valACYclovir (VALTREX) 500 mg tablet 11/01/2019 Active Active Problems No known active problems Surgical History Surgery Date Site/Laterality Comments SECTION Medical History Medical History Date Comments Thyroid disease Kidney stones Family History Medical History Relation Name Comments Uterine cancer Maternal Grandmother Relation Name Status Comments Father Alive Maternal Grandmother Mother Social History Tobacco Use Types Packs/Day Years Used Date Smoking Tobacco: Never Smokeless Tobacco: Never Alcohol Use Standard Drinks/Week Comments Never 0 (1 standard drink = 0.6 oz pur e alcohol) AUDIT-C Answer Date Recorded Q1: How often do you have a drink containing alc ohol? Never 11/15/2019 Average Number of Drinks Not on file 020 Frequency of Binge Drinking Not on file 10/26 Personal Safety Answer Date Recorded Getting School Help Needed Not on file 06/10 Comments No Sex and Gender Information Value Date Recorded Sex Assigned at Not on file Legal Sex Female 2:51 PM CDT Gender Identity Not on file Sexual Orientation Not on file Obstetrics History Para Term AB IAB SAB Ectopic Multiple Livin g Live Births 2 2 2 2 2 Date Outcome GA Total Labor Labor/2nd/3rd Weight Sex Type Anes PTL Luly A1 A5 Name Clin Term Term Last Filed Vital Signs Vital Sign Reading Time Taken Comments Blood Pressure 167/91 11/18/2019 11:39 AM CDT Pulse 80 11/18/2019 11:39 AM CDT Temperature 35.7 C (96.3 F) 11/18/2019 11:39 AM CDT Respiratory Rate - - Oxygen Saturation 98% 11/18/2019 11:39 AM CDT Inhaled Oxygen Concentration - - Weight 66.7 kg (147 lb) 11/18/2019 11:39 AM CDT Height 156.2 cm (5' 1.5 ) 11/18/2019 11:39 AM CD T Body Mass Index 27.33 11/18/2019 11:39 AM CDT Plan of Treatment Not on file Insurance [facility] CLAIMS Care Teams Technical Marketing Engineer Relationship Specialty Start Date End Date Leonel Quintanilla II, MD PCP - General Family Practice 10/31/19 Nicki Morel MD Obstetrics and Gynecology 10/31/19
--- OUTSIDE RECORDS SUMMARY | 2024-05-29 07:30 | XMS_ITS | Referral Summary ---
Author Organization [facility] Address [facility] [place] [address] Care Team Providers Care Audit Analyst Name Role Phone Socorro CAMACHO MD, Leonel Arboleda Primary Care Provid er Nicki Morel MD Unavailable [phone] Allergies No known active allergies Medications cholecalciferol [...] Plan of Treatment Not on file Insurance [facility] Care Teams Audit Analyst Relationship Specialty Start Date End Date Leonel Quintanilla II, MD PCP - General Family Practice 10/31/19 Nicki Morel MD Obstetrics and Gynecology 10/31/19
--- OUTSIDE RECORDS SUMMARY | 2024-05-29 07:30 | XMS_ITS | Clinical Summary ---
Author Organization [facility] Address [address] [place] [address] Care Team Providers Care Crew Boss Name Role Phone Jurgen Meyer Primary Care Provid er Allergies Active Allergy Reactions Criticality Noted Date Comments Erythromycin Nausea Only 02/06/2022 Medications levothyroxine 75 MCG tablet Take 75 mcg by mouth every morning. Active cetirizine 10 MG chewable tablet Chew 10 mg by mouth daily. Active valACYclovir 500 MG tablet Take 500 mg by mouth daily. Active Cholecalciferol (VITAMIN D3) 2000 UNITS Tab Take 1 tablet by mouth daily. Active pantoprazole 40 MG tablet Take 40 mg by mouth daily. Active multivitamin tablet Take 1 tablet by mouth after lunch. Active Calcium Carb-Cholecalci ferol (CALCIUM CARBONATE-VITAM IN D) 600-200 MG-UNIT tablet Take 1 tablet by mouth after lunch. Active acetaminophen 325 MG tablet Take 650 mg by mouth every 6 (six) hours as needed for Pain. Active ibuprofen 200 MG tablet Take 200 mg by mouth every 6 (six) hours as needed for Pain. Active pseudoephedrine 30 MG tablet Take 30 mg by mouth every 4 (four) hours as needed for Congestion. Active simethicone 125 MG chewable tablet Chew 125 mg by mouth every 6 (six) hours as needed for Flatulence. Active MUCINEX 600 MG 12 hr tablet Take 1 tablet by mouth 2 (two) times daily as needed. 10/11/2017 Active methylPREDNISol one, CHARO, 4 MG tablet 6 TABLETS ON DAY ONE, 5 TABLETS DAY TWO, 4 TABLETS DAY THREE, 3 TABLETS DAY FOUR, 2 TABLETS DAY FIVE, AND 1 TABLET DAY SIX 1 each 06/17/2021 Active albuterol sulfate HFA 108 (90 Base) MCG/ACT inhaler Inhale 2 puffs into the lungs every 6 (six) hours as needed for Wheezing. 18 g 02/06/2022 Active Family History Medical History Relation Comments Hyperlipidemia Father Hypertension Father Aneurysm Mother Cancer Mother leukemia Hypertension Mother Diabetes Sister 1 Hypertension Sister 3 Alcohol Abuse Sister 4 Relation Status Comments Brother Alive Father Mother Sister 1 Alive Sister 2 Alive Sister 3 Alive Sister 4 (Age 54) multiple dose intoxication Son 1 Alive Son 2 Alive Social History Tobacco Use Types Packs/Day Years Used Date Smoking Tobacco: Never Smokeless Tobacco: Never Tobacco Cessation:Counseling Given: Not Answered Alcohol Use Standard Drinks/Week Comments No 0 (1 standard drink = 0.6 oz pur e alcohol) Comments No Sex and Gender Information Value Date Recorded Sex Assigned at Not on file Legal Sex Female 3:16 PM KEG VARNISHER Gender Identity Not on file Sexual Orientation Not on file Last Filed Vital Signs Vital Sign Reading Time Taken Comments Blood Pressure 169/96 02/06/2022 10:27 AM KEG VARNISHER Pulse 91 02/06/2022 10:27 AM KEG VARNISHER Temperature 36.9 C (98.5 F) 02/06/2022 10:27 AM KEG VARNISHER Respiratory Rate 18 02/06/2022 10:27 AM KEG VARNISHER Oxygen Saturation 98% 02/06/2022 10:27 AM KEG VARNISHER Inhaled Oxygen Concentration - - Weight 68 kg (150 lb) 02/06/2022 10:27 AM KEG VARNISHER Height 157.5 cm (5' 2 ) 02/06/2022 10:27 AM KEG VARNISHER Body Mass Index 27.44 02/06/2022 10:27 AM KEG VARNISHER Plan of Treatment Health Maintenance Due Date Last Done Comments Colorectal Cancer Screening Colonoscopy (10 Years) 1957 Hepatitis C 1975 DTaP, Tdap and Td Vaccines ( 1 - Tdap) 01/20/1976 Mammogram Screening 1997 Zoster Vaccines (1 of 2) 2007 Annual Medicare Wellness Visit 2022 Dexa Scan (General) 2022 Pneumococcal Vaccine: 65+ Years (1 of 1 - PCV) 2022 COVID-19 Vaccine (4 - 2023-2 5 season) 2023 04/11/2021, 07/13/2020, 06/21/2020 Influenza Adult (#1) 2023 12/27/2019 RSV Immunization or 60+ Years (1 - 1-dose 75+ series) 01/20/2032 Meningococcal B Vaccine Aged Out No l onger eligible based on patient's age to complete this topic Meningococcal Vaccine Aged Out No mendoza mike eligible based on patient's age to complete this topic RSV Immunizations Under 20 Months Aged Out No longer eligible b ased on patient's age to complete [place] [id number] MEDICARE [facility] Care Teams Crew Boss Relationship Specialty Start Date End Date Jurgen Meeyr PA PCP - General PHYSICIAN CLINICAL DENTAL TECHNICIAN 02/06/22
[2024-05-29 08:09] LABS: Hematocrit 45.2 % (37.0-47.0); Hemoglobin 14.8 g/dL (12.0-15.0); Mean Corpuscular HGB Conc 32.7 g/dl (32-36); Mean Corpuscular Hemoglobin 29.4 pg (26-34); Mean Corpuscular Volume 89.9 fl (80-100); Mean Platelet Volume 10.9 fl (7.4-10.4); Platelet Count Result 264 k/mm3 (150-375); Red Blood Count 5.03 M/mm3 (4.2-5.4); Red Cell Distribution Width 13.1 % (11.5-14.5); White Blood Count 5.9 K/mm3 (4.5-10.0)
[2024-05-29 08:31] LABS: Potassium 3.9 mmol/L (3.4-5.0)
[2024-05-29 08:41] LABS: Alanine Aminotransferase 23 U/L (6-35); Albumin Level 4.3 g/dL (3.5-5.1); Alkaline Phosphatase 80 U/L (38-126); Anion Gap 7 mmol/L (4-12); Aspartate Amino Transferase 26 U/L (14-36); Bilirubin,Total 0.9 mg/dL (0.2-1.3); Blood Urea Nitrogen 12 mg/dL (7-17); Calcium 9.4 mg/dL (8.4-10.2); Carbon Dioxide 30 mmol/L (22-30); Chloride 104 mmol/L (98-107); Cholesterol 198 mg/dL (0-200); Estimated Glomerular Filt Rate > 60; Glucose 98 mg/dL (65-110); HDL Direct 48 mg/dL; Sodium 141 mmol/L (137-145); Triglycerides 118 mg/dL (<150)
[2024-05-29 08:42] LABS: LDL Cholesterol Direct 104 mg/dL
[2024-05-29 08:50] LABS: Add Urine Microscopic? YES; Appearance Urine Clear (Clear); Bacteria Urine None Seen /hpf; Bilirubin Urine Negative (Negative); Blood Urine Negative (Negative); Color Urine Yellow (Yellow); Glucose Urine UA Negative (Negative); Ketones Urine Negative (Negative); Leukocyte Esterase Ur 1+ LEU/UL (Negative); Need Manual Microscopic Reviewed; Nitrate Urine Negative (Negative); Non Pathogenic Casts 0-2; Protein Urine Negative (Negative); RBC Urine 0-2 /hpf (0-2); Specific Grav Ur 1.016 (1.001-1.035); Squamous Epithelial Cell Urine None Seen /hpf (Few); Urobilinogen Urine 0.2 mg/dL (<2.0); WBC Urine 0-5 /hpf (0-3); pH Urine 7.5 (5.0-9.0)
== END 2024-05-29 07:28 | disposition home or self-care (01) ==
LOC: ANHLAB 07:28
PROVIDERS: PCP Family Medicine; Visit Provider Family Medicine
DX: E78.5 Hyperlipidemia, unspecified (principal); I10 Essential (primary) hypertension; E03.9 Hypothyroidism, unspecified; K21.9 Gastro-esophageal reflux disease without esophagitis; R79.89 Other specified abnormal findings of blood chemistry
CPT/HCPCS: 36415; 80053; 80061; 81001; 84443; 85027

== ENCOUNTER 2025-01-09 08:22 | Outpatient (CLI) | payer MEDICARE, OTHER, SELFPAY ==
--- OUTSIDE RECORDS SUMMARY | 2025-01-09 08:32 | XMS_ITS | Clinical Summary ---
Author Organization [facility] Address [facility] [place] [address] Care Team Providers Care Property Insurance Agent Name Role Phone Socorro CAMACHO MD, Leonel [...] 11:39 AM CDT Height 156.2 cm (5' 1.5) 11/18/2019 11:39 AM CD T Body Mass Index 27.33 11/18/2019 11:39 AM CDT Plan of Treatment Not on file Insurance [facility] CLAIMS Care Teams Property Insurance Agent Relationship Specialty Start Date End Date Leonel Quintanilla II, MD PCP - General Family Practice 10/31/19 Nicki Morel MD Obstetrics and Gynecology 10/31/19
--- OUTSIDE RECORDS SUMMARY | 2025-01-09 08:32 | XMS_ITS | Clinical Summary ---
Author Organization [facility] Address [address] [place] [address] Care Team Providers Care School Librarian Name Role Phone Jurgen Meyer Primary Care [...] on file Legal Sex Female 3:16 PM CENSUS TAKER Gender Identity Not on file Sexual Orientation Not on file Last Filed Vital Signs Vital Sign Reading Time Taken Comments Blood Pressure 169/96 02/06/2022 10:27 AM CENSUS TAKER Pulse 91 02/06/2022 10:27 AM CENSUS TAKER Temperature 36.9 C (98.5 F) 02/06/2022 10:27 AM CENSUS TAKER Respiratory Rate 18 02/06/2022 10:27 AM CENSUS TAKER Oxygen Saturation 98% 02/06/2022 10:27 AM CENSUS TAKER Inhaled Oxygen Concentration - - Weight 68 kg (150 lb) 02/06/2022 10:27 AM CENSUS TAKER Height 157.5 cm (5' 2) 02/06/2022 10:27 AM CENSUS TAKER Body Mass Index 27.44 02/06/2022 10:27 AM CENSUS TAKER Plan of Treatment Health Maintenance Due Date Last Done Comments Colorectal Cancer Screening Colonoscopy (10 Years) 1957 Hepatitis C 1975 DTaP, Tdap and Td Vaccines ( 1 - Tdap) 01/20/1976 Mammogram Screening 1997 Pneumococcal Vaccine: 50+ Years (1 of 1 - PCV) 2007 Zoster Vaccines (1 of 2) 2007 Annual Medicare Wellness Visit 2022 Dexa Scan (General) 2022 COVID-19 Vaccine (4 - 2024-2 6 season) 2024 04/11/2021, 07/13/2020, 06/21/2020 Influenza Adult (#1) 2024 12/27/2019 RSV Immunization or 60+ Years (1 [...] patient's age to complete this [place] [id number] MEDICARE [facility] Care Teams School Librarian Relationship Specialty Start Date End Date Jurgen Meyer PA PCP - General PHYSICIAN BOOK CANVASSER 02/06/22
--- OUTSIDE RECORDS SUMMARY | 2025-01-09 08:32 | XMS_ITS | Clinical Summary ---
Author Organization [facility] Address [address] [place] [address] Care Team Providers Care Filter Press Tender Head Name Role Phone Ilia Granados MD Primary Care Provider [phone] Source Comments [facility],non-owned Affiliates and Associated Physician Practices is amultiple site organization consisting of ambulatory clinics and hospital sitesin [place], [place] and [place]. This disclosure is being madepursuant to the Care Everywhere program and may not contain all information available regarding this patient. Last updated 17.[facility] Allergies Active Allergy Reactions Criticality Noted Date Comments Erythromycin Other 02/06/2022 Medications * Be aware that medications may not be up to date on this document. Alwaysverify current medications with the patient. acetaminophen (Tylenol) 325 MG tablet Take 2 (two) tablets by mouth every 6 hours as needed Active albuterol HFA (Proventil; Ventolin; Proair) 108 (90 Base) MCG/ACT inhaler 02/06/2022 Active cetirizine (ZyrTEC) 10 MG tablet May cause drowsiness.O btain advice for OTCs. 10/03/2022 Active Cholecalciferol 50 [...] lisinopril (Prinivil; Zestril) 10 MG tablet 10/05/2022 Active Neomycin-Polymy henrique-Dexameth (Maxitrol) 0.1 % ophthalmic ointment 08/13/2021 Active pantoprazole EC (Protonix) 40 MG tablet 10/05/2022 [...] Date Recorded PHQ2 TOTAL SCORE 0 10/12/2022 Comments No Sex and Gender Information Value Date Recorded Sex Assigned at Not on file Legal Sex Female 4:20 PM CDT Gender Identity Not on file [...] P M CDT Height 157.5 cm (5' 2) 10/12/2022 1:06 PM CDT Body Mass Index [...] of 2) 2007 SCREENING FOR DIABETES 10/12/2022 DEPRESSION SCREENING 03/27/2024 10/12/2022 COVID-19 VACCINE ( - season) 2024 12/19/2021, 04/11/2021, 07/13/2020, Additional history exists INFLUENZA VACCINE (#1) 2024 12/08/2021, 2019 Respiratory Syncytial Virus (RSV) Vaccine Pt: or [...] complete this topic MENINGOCOCCAL (Group B) VACCINE SHARED DECISION-MAKING Aged Out No longer eligible based on patient's age to complete this topic MENINGOCOCCAL GROUPS A/C/Y/W VACCINE Aged Out No longer eligible based on patient's age to complete this topic Insurance MEDICARE Care Teams Filter Press Tender Head Relationship Specialty Start Date End Date Ilia Granados MD [address] [place] [address] PCP - General Family Medicine 10/12/22
[2025-01-09 09:41] LABS: Alanine Aminotransferase 34 U/L (6-35); Albumin Level 4.3 g/dL (3.5-5.1); Alkaline Phosphatase 74 U/L (38-126); Anion Gap 7 mmol/L (4-12); Aspartate Amino Transferase 43 U/L (14-36); Bilirubin,Total 0.7 mg/dL (0.2-1.3); Blood Urea Nitrogen 15 mg/dL (7-17); Calcium 9.2 mg/dL (8.4-10.2); Carbon Dioxide 30 mmol/L (22-30); Chloride 103 mmol/L (98-107); Estimated Glomerular Filt Rate > 60; Glucose 90 mg/dL (65-110); Sodium 140 mmol/L (137-145); Total Protein 8.0 g/dL (6.3-8.2)
[2025-01-09 09:49] LABS: Potassium 4.3 mmol/L (3.4-5.0)
[2025-01-09 10:16] LABS: Thyroid Stimulating Hormone 1.530 uIU/mL (0.465-4.680)
== END 2025-01-09 08:23 | disposition home or self-care (01) ==
PROVIDERS: PCP Family Medicine; Visit Provider Physician Assistant
DX: E03.9 Hypothyroidism, unspecified (principal); I10 Essential (primary) hypertension
CPT/HCPCS: 36415; 80053; 84443

== ENCOUNTER 2025-02-06 11:27 | Outpatient (CLI) | payer MEDICARE, OTHER, SELFPAY ==
[2025-02-06 11:49] LABS: Add Urine Microscopic? NO; Appearance Urine Clear (Clear); Glucose Urine UA Negative (Negative); Leukocyte Esterase Ur Negative LEU/UL (Negative); Nitrate Urine Negative (Negative); Specific Grav Ur 1.005 (1.001-1.035)
[2025-02-06 12:24] LABS: Alanine Aminotransferase 203 U/L (6-35); Albumin Level 4.2 g/dL (3.5-5.1); Alkaline Phosphatase 127 U/L (38-126); Anion Gap 8 mmol/L (4-12); Aspartate Amino Transferase 142 U/L (14-36); Bilirubin,Total 0.7 mg/dL (0.2-1.3); Blood Urea Nitrogen 14 mg/dL (7-17); Calcium 9.2 mg/dL (8.4-10.2); Carbon Dioxide 30 mmol/L (22-30); Chloride 102 mmol/L (98-107); Estimated Glomerular Filt Rate > 60; Glucose 108 mg/dL (65-110); Potassium 4.6 mmol/L (3.4-5.0); Sodium 140 mmol/L (137-145); Total Protein 7.9 g/dL (6.3-8.2)
--- OUTSIDE RECORDS SUMMARY | 2025-02-06 12:38 | XMS_ITS | Clinical Summary ---
Author Organization [facility] [employer] Address [address] [place] [address] Care Team Providers Care Alteration Manager Name Role Phone Ilia Granados MD Primary Care Provider [phone] Source Comments [facility],non-owned Affiliates and Associated Physician Practices is amultiple site organization consisting of ambulatory clinics and hospital sitesin [place], [place], [place] and [place]. This disclosure is being madepursuant to the Care Everywhere program and may not contain all information available regarding this patient. Last updated 17.[facility] Allergies Active Allergy Reactions Criticality Noted Date [...] complete this topic Insurance MEDICARE Care Teams Alteration Manager Relationship Specialty Start Date End Date Ilia Granados MD [address] [place] [address] PCP - General Family Medicine 10/12/22
--- OUTSIDE RECORDS SUMMARY | 2025-02-06 12:39 | XMS_ITS | Clinical Summary ---
Author Organization [facility] Address [address] [place] [address] Care Team Providers Care Metallurgical Inspector Name Role Phone Ilia Granados MD Primary Care Provider [phone] Allergies Active Allergy Reactions Criticality Noted Date [...] needed for Wheezing. 18 g 02/06/2022 Active cephALEXin (KEFLEX) 500 MG capsule Take 1 capsule (500 mg total) by mouth 4 (four) times daily for 10 days. 20 capsule 02/04/2025 Active Encounters Date Type Department Care Team Description 02/04/2025 9:25 AM ZINC PLATER - 02/04/2025 12:05 PM ZINC PLATER Emergency [facility] Emergency Room [id number] [place] [address] Abdiel Owen MD Urinary Symptoms Discharge Disposition: Home or Self Care (Routine Discharge) 02/04/2025 Travel from Last 3 Months Family History Medical History Relation Comments Hyperlipidemia [...] on file Legal Sex Female 3:16 PM ZINC PLATER Gender Identity Not on file Sexual Orientation Not on file Last Filed Vital Signs Vital Sign Reading Time Taken Comments Blood Pressure 158/94 02/04/2025 12:04 PM ZINC PLATER Pulse 80 02/04/2025 12:04 PM ZINC PLATER Temperature 36.6 C (97.9 F) 02/04/2025 12:04 PM ZINC PLATER Respiratory Rate 18 02/04/2025 12:04 PM ZINC PLATER Oxygen Saturation 98% 02/04/2025 12:04 PM ZINC PLATER Inhaled Oxygen Concentration - - Weight 68 kg (150 lb) 02/04/2025 9:36 AM ZINC PLATER Height 157.5 cm (5' 2) 02/04/2025 9:36 AM ZINC PLATER Body Mass Index 27.44 02/04/2025 9:36 AM ZINC PLATER Plan of Treatment Health Maintenance Due Date Last Done Comments Colorectal Cancer Screening Colonoscopy (10 Years) 1957 Hepatitis C 1975 DTaP, Tdap and Td Vaccines (1 - Tdap) 01/20/1976 Mammogram Screening 1997 Pneumococcal Vaccine: 50+ Years (1 of 1 - PCV) 2007 Zoster Vaccines (2 of 2) 08/20/2018 06/25/2018 Annual Medicare Wellness Visit 2022 Dexa Scan (General) 2022 COVID-19 Vaccine ( - season) 2024 12/19/2021, 04/11/2021, 07/13/2020, Additional history exists Influenza Adult (#1) 2024 02/05/2020, 12/27/19 20 RSV Immunization or 60+ Years (1 - 1-dose 75+ series) 01/20/2032 Hepatitis A Vaccines Aged Out No long er eligible based on patient's age to complete this topic Meningococcal B Vaccine Aged Out No l onger eligible based on patient's age to complete this topic Meningococcal Vaccine Aged Out No mendoza mike eligible based on patient's age to complete this topic RSV Immunizations Under 20 Months Aged Out No longer eligible based on patient's age to complete this topic Procedures Procedure Name Priority Date/Time Associated Diagnosis Comments CT ABD+PEL KIDNEY STONE STAT 02/04/2025 10:39 AM ZINC PLATER COMPREHENSIVE METABOLIC PANEL STAT 02/04/2025 10:29 AM ZINC PLATER HC CBC AUTO W/AUTO DIFF STAT 02/04/2025 10:29 AM ZINC PLATER URINALYSIS, AUTO, COMPLETE STAT 02/04/2025 9:45 AM ZINC PLATER from Last 3 Months Results * CT ABD+PEL KIDNEY STONE (02/04/2025 10:39 AM ZINC PLATER) Anatomical Region Laterality Modality Abdomen Computed Tomogra phy 02/04/2025 10:4 9 AM ZINC PLATER Impressions 02/04/2025 10:54 AM ZINC PLATER IMPRESSION: 1. Mild bilateral hydronephrosis and hydroureter, but no evidence of obstructing calculus. 2. Soft tissue swelling surrounding the urinary bladder wall. Cystitis and ascending infection are a consideration. 3. Given the history of unexplained hematuria, nonemergent CT urogram with and without contrast recommended. 4. Cannot assess for pyelonephritis with a noncontrast exam. Clinical correlation recommended. 5. Small hiatal hernia. 6. Atherosclerosis and coronary calcifications. 7. Moderate degenerative changes of the spine, worst at L2-L3. 5 mm retrolisthesis of L2 on L3. Moderate levoscoliosis. 8. 8 mm right lower lobe nodule is indeterminate. 6 mm nodule along the right minor fissure, likely incidental lymph node. Follow- up CT of the complete chest recommended nonemergently. (Per Fleischner Society guidelines). Referred By: Interpreted By: Renato North MD, 02/04/2025 10:49 AM Narrative 02/04/2025 10:54 AM ZINC PLATER [facility] [address] [place] [address] EXAMINATION: CT ABDOMEN PELVIS WITHOUT CONTRAST EXAM DATE: 02/04/2025 10:32 AM REASON FOR EXAM: hematuria History of kidney stones. Dysuria. COMPARISON: None TECHNIQUE: Axial images through the abdomen and pelvis without intravenous or enteric contrast. Dose lowering technique was used for this study which may include, but is not limited to, dose reduction techniques, automated exposure control, use of iterative reconstruction and ALARA (As low As Reasonably Achievable)/Image Gently techniques. FINDINGS: Adrenals unremarkable. Kidneys: No suspicious renal lesion within the limitations of a noncontrast study. Mild bilateral hydronephrosis and hydroureter, but no evidence of obstructing calculus. Soft tissue swelling surrounding the urinary bladder wall. Cystitis and ascending infection are a consideration. Given the history of unexplained hematuria, nonemergent CT urogram with and without contrast recommended. Cannot assess for pyelonephritis with a noncontrast exam. Small hiatal hernia. Stomach and duodenum otherwise unremarkable. Pancreas unremarkable. Spleen unremarkable. Gallbladder unremarkable. Liver: No evidence of intrahepatic biliary dilatation or mass. No mesenteric lymphadenopathy. No evidence of small bowel dilatation. No retroperitoneal lymphadenopathy. Scattered atherosclerosis. No evidence of abdominal aortic aneurysm. Moderate degenerative changes of the spine, worst at L2-L3. 5 mm retrolisthesis of L2 on L3. No evidence of an acute fracture. Moderate levoscoliosis. Limited evaluation of thorax demonstrates an 8 mm right lower lobe nodule axial image 28 and a 6 mm nodule along the right minor fissure axial image 19, likely incidental lymph node. Coronary calcifications. Procedure Note Renato North MD - 02/04/2025 [facility] [address] [place] [address] EXAMINATION: CT ABDOMEN PELVIS WITHOUT CONTRAST EXAM DATE: 02/04/2025 10:32 AM REASON FOR EXAM: hematuria History of kidney stones. Dysuria. COMPARISON: None TECHNIQUE: Axial images through the abdomen and pelvis without intravenousor enteric contrast. Dose lowering technique was used for this study which may include, but isnot limited to, dose reduction techniques, automated exposure control, use of iterativereconstruction and ALARA (As low As Reasonably Achievable)/Image Gently techniques. FINDINGS: Adrenals unremarkable. Kidneys: No suspicious renal lesion within the limitations of anoncontrast study. Mild bilateral hydronephrosis and hydroureter, but no evidence ofobstructing calculus. Soft tissue swelling surrounding the urinarybladder wall. Cystitis and ascending infection are a consideration. Given the history of unexplained hematuria, nonemergent CT urogram withand without contrast recommended. Cannot assess for pyelonephritis with a noncontrast exam. Small hiatal hernia. Stomach and duodenum otherwise unremarkable. Pancreas unremarkable. Spleen unremarkable. Gallbladder unremarkable. Liver: No evidence of intrahepatic biliary dilatation or mass. No mesenteric lymphadenopathy. No evidence of small bowel dilatation. No retroperitoneal lymphadenopathy. Scattered atherosclerosis. No evidence of abdominal aortic aneurysm. Moderate degenerative changes of the spine, worst at L2-L3. 5 mm retrolisthesis of L2 on L3. No evidence of an acute fracture. Moderate levoscoliosis. Limited evaluation of thorax demonstrates an 8 mm right lower lobe noduleaxial image 28 and a 6 mm nodule along the right minor fissure axial image19, likely incidental lymph node. Coronary calcifications. IMPRESSION: 1. Mild bilateral hydronephrosis and hydroureter, but no evidence ofobstructing calculus. 2. Soft tissue swelling surrounding the urinary bladder wall. Cystitisand ascending infection are a consideration. 3. Given the history of unexplained hematuria, nonemergent CT urogramwith and without contrast recommended. 4. Cannot assess for pyelonephritis with a noncontrast exam. Clinicalcorrelation recommended. 5. Small hiatal hernia. 6. Atherosclerosis and coronary calcifications. 7. Moderate degenerative changes of the spine, worst at L2-L3. 5 mmretrolisthesis of L2 on L3. Moderate levoscoliosis. 8. 8 mm right lower lobe nodule is indeterminate. 6 mm nodule along theright minor fissure, likely incidental lymph node. Follow-up CT of thecomplete chest recommended nonemergently. (Per Fleischner Societyguidelines). Referred By: Interpreted By: Renato North MD, 02/04/2025 10:49 AM Abdiel Owen MD CT Final Result * (ABNORMAL) COMPREHENSIVE METABOLIC PANEL (02/04/2025 10:29 AM ZINC PLATER) GLUCOSE 91 70 - 99 MG/DL 02/04/2025 10:48 AM [facility] BUN 12 7 - 18 MG/DL 02/04/2025 10:48 AM [facility] CREATININE S/P/B 0.86 0.55 - 1.02 MG/DL 02/04/2025 10:48 AM [facility] SODIUM S/P/B 140 136 - 145 MMOL/L 02/04/2025 10:48 AM [facility] POTASSIUM S/P/B 4.0 3.5 - 5.1 MMOL/L 02/04/2025 10:48 AM [facility] CHLORIDE S/P/B 104 100 - 108 MMOL/L 02/04/2025 10:48 AM [facility] CO2 28.8 21 - 32 MMOL/L 02/04/2025 10:48 AM [facility] CALCIUM S/P/B 8.8 8.5 - 10.1 MG/DL 02/04/2025 10:48 AM [facility] BILIRUBIN TOTAL S/P/B 0.8 0.2 - 1.2 MG/DL 02/04/2025 10:48 AM [facility] TOTAL PROTEIN S/P/B 7.7 6.4 - 8.2 G/DL 02/04/2025 10:48 AM [facility] ALBUMIN S/P/B 3.6 3.4 - 5.0 G/DL 02/04/2025 10:48 AM [facility] AST 91(H) 15 - 37 U/L 02/04/2025 10:48 AM [facility] ALT 138(H) 14 - 55 U/L 02/04/2025 10:48 AM [facility] ALKALINE PHOSPHATASE S/P/B 121 50 - 136 U/L 02/04/2025 10:48 AM [facility] ANION GAP 7.2 5 - 15 MMOL/L 02/04/2025 10:48 AM [facility] BUN CREATININE RATIO 14.0 6 - 26 02/04/2025 10:48 AM [facility] A/G RATIO 0.9(L) 1.0 - 2.0 RATIO 02/04/2025 10:48 AM [facility] GFR ESTIMATE 74(L) >90 ML/MIN/1.7 3 M2 02/04/2025 10:48 AM [facility] Comment: NOTE: eGFR is not calculated for patients <18 years of age. This is an estimated GFR calculation using the new CKD EPI creatinine equation without race and so does not require a correction factor for race. This estimated GFR should not be used for calculating drug doses. BLOOD VENOUS BLOOD SPECIMEN / Unknown 02/04/2025 10:29 AM ZINC PLATER Abdiel Owen MD LABORATORY Final Result [facility] [address] [place] [address], [place] [phone] * (ABNORMAL) CBC W/DIFF (02/04/2025 10:29 AM ZINC PLATER) WBC 11.15(H) 4.4 - 11.0 x10'3/uL 02/04/2025 10:35 AM [facility] RBC 4.75 4.50 - 5.10 x10'6/uL 02/04/2025 10:35 AM [facility] HGB 14.2 12.3 - 15.3 G/DL 02/04/2025 10:35 AM [facility] HCT 43.5 35.9 - 44.6 % 02/04/2025 10:35 AM [facility] MCV 91.6 80.0 - 96.0 FL 02/04/2025 10:35 AM [facility] MCH 29.9 25.3 - 30.9 PG 02/04/2025 10:35 AM [facility] MCHC 32.6 31.0 - 34.1 G/DL 02/04/2025 10:35 AM [facility] RDW 13.2 12.4 - 15.1 % 02/04/2025 10:35 AM [facility] PLT 221 151 - 353 x10'3/uL 02/04/2025 10:35 AM [facility] MPV 10.8 9.6 - 12.0 FL 02/04/2025 10:35 AM [facility] RBC MORPHOLOGY NORMAL 02/04/2025 10:35 AM [facility] PLT MORPH. NORMAL 02/04/2025 10:35 AM [facility] WBC MORPHOLOGY NORMAL 02/04/2025 10:35 AM [facility] LYMPHOCYTES % 9.3(L) 15.8 - 45.0 % 02/04/2025 10:35 AM [facility] NEUTROPHILS % 77.9(H) 42.1 - 71.9 % 02/04/2025 10:35 AM [facility] MONOCYTES % 9.8 5.7 - 12.5 % 02/04/2025 10:35 AM [facility] EOSINOPHILS 2.2 0.0 - 5.6 % 02/04/2025 10:35 AM [facility] BASOPHILS 0.3 0.0 - 1.3 % 02/04/2025 10:35 AM [facility] ABS. NEUTROPHILS 8.69(H) 1.40 - 6.00 x10'3/uL 02/04/2025 10:35 AM [facility] IMMATURE GRANS % 0.5 0.0 - 0.5 % 02/04/2025 10:35 AM [facility] ABS. LYMPHOCYTES 1.04 0.80 - 4.70 x10'3/uL 02/04/2025 10:35 AM [facility] BLOOD VENOUS BLOOD SPECIMEN / Unknown 02/04/2025 10:29 AM ZINC PLATER [place] Abdiel Owen MD LABORATORY Final Result [facility] [address] [place] [address], * (ABNORMAL) Urinalysis, Auto, Complete (02/04/2025 9:45 AM [facility]) COLOR (U) YELLOW 02/04/2025 10:06 AM [facility] TRANSPARENCY CLEAR 02/04/2025 10:06 AM [facility] SPECIFIC GRAVITY (U) <1.005 1.000 - 1.030 02/04/2025 10:06 AM [facility] U PH 6.5 5.0 - 9.0 02/04/2025 10:06 AM [facility] LEUKOCYTES (U) 1+(A) NEGATIVE 02/04/2025 10:06 AM [facility] NITRITES NEGATIVE NEGATIVE 02/04/2025 10:06 AM [facility] PROTEIN RANDOM (U) NEGATIVE NEGATIVE 02/04/2025 10:06 AM [facility] GLUCOSE (U) NEGATIVE NEGATIVE 02/04/2025 10:06 AM [facility] KETONES MG/DL (U) NEGATIVE NEGATIVE 02/04/2025 10:06 AM [facility] BILIRUBIN (U) NEGATIVE NEGATIVE 02/04/2025 10:06 AM [facility] BLOOD (U) 1+(A) NEGATIVE 02/04/2025 10:06 AM [facility] WBC/HPF 0-5 0 - 5 /HPF 02/04/2025 10:06 AM [facility] RBC/HPF 5-10 0 - 5 /HPF 02/04/2025 10:06 AM [facility] EPI/HPF RARE /HPF 02/04/2025 10:06 AM [facility] BACTERIA (U) RARE /HPF 02/04/2025 10:06 AM [facility] URINE URINE SPECIMEN OBTAINED BY CLEAN CATCH PROCEDURE / Unknown 02/04/2025 9:45 AM ZINC PLATER Abdiel Owen MD URINE ORDERABLES Final Result [facility] [address] [place] [address], [place] [phone] from Last 3 Months Insurance MEDICARE [facility] Care Teams Metallurgical Inspector Relationship Specialty Start Date End Date Ilia Granados MD [address] [place] [address] PCP - General FAMILY PRACTICE 02/04/25
--- OUTSIDE RECORDS SUMMARY | 2025-02-06 12:39 | XMS_ITS | Clinical Summary ---
Author Organization [facility] Address [facility] [place] [address] Care Team Providers Care Finish Mender Name Role Phone Socorro CAMACHO MD, Leonel Arboleda Primary Care Provid er Nicki Morel MD Unavailable [phone] Allergies No known active allergies Medications cholecalciferol [...] Plan of Treatment Not on file Insurance [facility] CLAIMS Care Teams Finish Mender Relationship Specialty Start Date End Date Leonel Quintanilla II, MD PCP - General Family Practice 10/31/19 Nicki Morel MD Obstetrics and Gynecology 10/31/19
== END 2025-02-06 11:28 | disposition home or self-care (01) ==
LOC: ANHLAB 11:29
PROVIDERS: PCP Family Medicine; Visit Provider Physician Assistant Medical
DX: R30.0 Dysuria (principal); R79.89 Other specified abnormal findings of blood chemistry
CPT/HCPCS: 36415; 80053; 81003; 87086

== ENCOUNTER 2025-02-13 10:20 | Outpatient (CLI) | payer MEDICARE, OTHER, SELFPAY ==
--- NOTE | ~2025-02-13 | CT_ITS ---
EXAMINATION:CT chest high resolution wo co DATE: 02/13/2025 10:35 INDICATION: Abnormal finding TECHNIQUE: Computed tomography (CT) of the chest was performed without intravenous contrast. The dose-length product (DLP) was 155.06 mGy-cm. COMPARISON: None. FINDINGS: No consolidation effusion or pneumothorax. 10 mm right lung base nodule image 80 series 4. Calcified granuloma right lung apex image 37. 4 mm subpleural nodule image 39 right upper lobe. 6 x 4 mm right middle lobe nodule image 72 series 4. 9 x 5 mm pleural nodule posterior left upper lobe image 25 series 4. Mild fibrotic changes in lung bases. Heart size normal with no thoracic aortic aneurysm or dissection. Several lymph nodes present all of which appear nonpathologic sized except 1.2 cm short axis subcarinal lymph node. No acute process seen in the bony thorax, visualized portions of the upper abdomen, or extrathoracic soft tissues. IMPRESSION: 1. Several lung nodules the largest of which is in the right lung base measuring 10 mm. Mildly pathologic sized subcarinal lymph node also noted. Correlate with PET/CT or follow-up chest CT in 3 months. 2. No acute process. Reviewed, dictated and finalized at location [facility]. [facility] IMPRESSION: 1. Several lung nodules the largest of which is in the right lung base measurin g 10 mm. Mildly pathologic sized subcarinal lymph node also noted. Correlate wi PET/CT or follow-up chest CT in 3 months. 2. No acute process.
[2025-02-13 11:29] LABS: Alanine Aminotransferase 65 U/L (6-35); Albumin Level 4.6 g/dL (3.5-5.1); Alkaline Phosphatase 90 U/L (38-126); Anion Gap 7 mmol/L (4-12); Aspartate Amino Transferase 46 U/L (14-36); Bilirubin,Total 0.7 mg/dL (0.2-1.3); Blood Urea Nitrogen 14 mg/dL (7-17); Calcium 9.5 mg/dL (8.4-10.2); Carbon Dioxide 30 mmol/L (22-30); Chloride 100 mmol/L (98-107); Estimated Glomerular Filt Rate > 60; Glucose 83 mg/dL (65-110); Potassium 4.7 mmol/L (3.4-5.0); Sodium 137 mmol/L (137-145); Total Protein 8.5 g/dL (6.3-8.2)
[2025-02-13 11:30] LABS: Iron 72 ug/dL (37-170)
[2025-02-13 11:40] LABS: Percent Iron Saturation 26 % (20-50)
[2025-02-13 12:02] LABS: Hepatitis B Surface Antigen Negative (Negative)
[2025-02-13 12:08] LABS: HAV RESULT Negative (Negative)
[2025-02-13 12:12] LABS: Ferritin 99.20 ng/mL (11.1-264)
[2025-02-13 12:21] LABS: Hepatitis B Surface Anti Res Positive
--- OUTSIDE RECORDS SUMMARY | 2025-02-13 12:33 | XMS_ITS | Clinical Summary ---
Author Organization [facility] Address [address] [place] [address] Care Team Providers Care Family Service Counselor Name Role Phone Ilia Granados MD Primary Care Provider [phone] Source Comments [facility],non-owned Affiliates and Associated Physician Practices is amultiple site organization consisting of ambulatory clinics and hospital sitesin [place], [place], [place] and [place]. This disclosure is being madepursuant to the Care Everywhere program and may not contain all information available regarding this patient. Last updated 17.[facility] Allergies Active Allergy Reactions Criticality Noted Date [...] complete this topic Insurance MEDICARE Care Teams Family Service Counselor Relationship Specialty Start Date End Date Ilia Granados MD [address] [place] [address] PCP - General Family Medicine 10/12/22
--- OUTSIDE RECORDS SUMMARY | 2025-02-13 12:33 | XMS_ITS | Clinical Summary ---
Author Organization [facility] Address [facility] [place] [address] Care Team Providers Care Acid Dumper Name Role Phone Socorro CAMACHO MD, Leonel [...] Plan of Treatment Not on file Insurance [facility] CLAIMS Care Teams Acid Dumper Relationship Specialty Start Date End Date Leonel Quintanilla II, MD PCP - General Family Practice 10/31/19 Nicki Morel MD Obstetrics and Gynecology 10/31/19
[2025-02-14 14:08] LABS: ANA by IFA Rfx Titer/Pattern Positive (.)
== END 2025-02-13 10:21 | disposition home or self-care (01) ==
PROVIDERS: PCP Family Medicine; Visit Provider Physician Assistant Medical
DX: R79.89 Other specified abnormal findings of blood chemistry (principal); R91.8 Other nonspecific abnormal finding of lung field
CPT/HCPCS: 36415; 71250; 80053; 82728; 83540; 83550; 86038; 86706; 86709; 86803; 87340

== ENCOUNTER 2025-02-27 07:52 | Outpatient (CLI) | payer MEDICARE, OTHER, SELFPAY ==
--- NOTE | ~2025-02-27 | US_ITS ---
US abdomen limited INDICATION: Abnormal laboratory studies. PROCEDURE: Realtime right upper abdominal ultrasound. COMPARISON: No prior studies for comparison. FINDINGS: The pancreas is normal without focal mass or pancreatic ductal dilation. Liver echotexture is normal without focal mass or intrahepatic biliary dilatation. There is normal directional flow in the portal vein. There is a gallbladder polyp measuring 5 mm. No gallstones, gallbladder wall thickening or pericholecystic fluid. Common bile duct measures 5 mm. No sonographic Anna's sign. IMPRESSION: 1: Gallbladder polyp measuring 5 mm. Reviewed, dictated and finalized at location I. SETTER
--- OUTSIDE RECORDS SUMMARY | 2025-02-27 07:58 | XMS_ITS | Clinical Summary ---
Author Organization [facility] Address [address] [place] [address] Care Team Providers Care Bushing Press Operator Name Role Phone Ilia Granados MD Primary Care Provider [phone] Allergies Active Allergy Reactions Criticality Noted Date [...] daily for 10 days. 20 capsule 02/04/2025 02/15/20 25 Encounters Date Type Department Care Team Description 02/04/2025 9:25 AM EMPLOYMENT INTERVIEWER - 02/04/2025 12:05 PM EMPLOYMENT INTERVIEWER Emergency [facility] Emergency Room [id number] [place] [address] Abdiel Owen MD Urinary Symptoms Discharge Disposition: [...] on file Legal Sex Female 3:16 PM EMPLOYMENT INTERVIEWER Gender Identity Not on file Sexual Orientation Not on file Last Filed Vital Signs Vital Sign Reading Time Taken Comments Blood Pressure 158/94 02/04/2025 12:04 PM EMPLOYMENT INTERVIEWER Pulse 80 02/04/2025 12:04 PM EMPLOYMENT INTERVIEWER Temperature 36.6 C (97.9 F) 02/04/2025 12:04 PM EMPLOYMENT INTERVIEWER Respiratory Rate 18 02/04/2025 12:04 PM EMPLOYMENT INTERVIEWER Oxygen Saturation 98% 02/04/2025 12:04 PM EMPLOYMENT INTERVIEWER Inhaled Oxygen Concentration - - Weight 68 kg (150 lb) 02/04/2025 9:36 AM EMPLOYMENT INTERVIEWER Height 157.5 cm (5' 2) 02/04/2025 9:36 AM EMPLOYMENT INTERVIEWER Body Mass Index 27.44 02/04/2025 9:36 AM EMPLOYMENT INTERVIEWER Plan of Treatment Health Maintenance Due Date [...] ABD+PEL KIDNEY STONE STAT 02/04/2025 10:39 AM EMPLOYMENT INTERVIEWER COMPREHENSIVE METABOLIC PANEL STAT 02/04/2025 10:29 AM EMPLOYMENT INTERVIEWER HC CBC AUTO W/AUTO DIFF STAT 02/04/2025 10:29 AM EMPLOYMENT INTERVIEWER URINALYSIS, AUTO, COMPLETE STAT 02/04/2025 9:45 AM EMPLOYMENT INTERVIEWER from Last 3 Months Results * CT ABD+PEL KIDNEY STONE (02/04/2025 10:39 AM EMPLOYMENT INTERVIEWER) Anatomical Region Laterality Modality Abdomen Computed Tomogra phy 02/04/2025 10:4 9 AM EMPLOYMENT INTERVIEWER Impressions 02/04/2025 10:54 AM EMPLOYMENT INTERVIEWER IMPRESSION: 1. Mild bilateral hydronephrosis and hydroureter, [...] 02/04/2025 10:49 AM Narrative 02/04/2025 10:54 AM EMPLOYMENT INTERVIEWER [facility] [address] [place] [address] EXAMINATION: CT ABDOMEN PELVIS WITHOUT CONTRAST EXAM [...] Procedure Note Renato North MD - 02/04/2025 [facility] [address] [place] [address] EXAMINATION: CT ABDOMEN PELVIS WITHOUT CONTRAST EXAM [...] (ABNORMAL) COMPREHENSIVE METABOLIC PANEL (02/04/2025 10:29 AM EMPLOYMENT INTERVIEWER) GLUCOSE 91 70 - 99 MG/DL 02/04/2025 10:48 AM [facility] BUN 12 7 - 18 MG/DL 02/04/2025 10:48 AM [facility] CREATININE S/P/B 0.86 0.55 - 1.02 MG/DL 02/04/2025 10:48 AM [facility] SODIUM S/P/B 140 136 - 145 MMOL/L 02/04/2025 10:48 AM [facility] POTASSIUM S/P/B 4.0 3.5 - 5.1 MMOL/L 02/04/2025 10:48 AM [facility] CHLORIDE S/P/B 104 100 - 108 MMOL/L 02/04/2025 10:48 AM [facility] CO2 28.8 21 - 32 MMOL/L 02/04/2025 10:48 AM [facility] CALCIUM S/P/B 8.8 8.5 - 10.1 MG/DL 02/04/2025 10:48 AM [facility] BILIRUBIN TOTAL S/P/B 0.8 0.2 - 1.2 MG/DL 02/04/2025 10:48 AM [facility] TOTAL PROTEIN S/P/B 7.7 6.4 - 8.2 G/DL 02/04/2025 10:48 AM [facility] ALBUMIN S/P/B 3.6 3.4 - 5.0 G/DL 02/04/2025 10:48 AM [facility] AST 91(H) 15 - 37 U/L 02/04/2025 10:48 AM [facility] ALT 138(H) 14 - 55 U/L 02/04/2025 10:48 AM [facility] ALKALINE PHOSPHATASE S/P/B 121 50 - 136 U/L 02/04/2025 10:48 AM [facility] ANION GAP 7.2 5 - 15 MMOL/L 02/04/2025 10:48 AM [facility] BUN CREATININE RATIO 14.0 6 - 26 02/04/2025 10:48 AM [facility] A/G RATIO 0.9(L) 1.0 - 2.0 RATIO 02/04/2025 10:48 AM [facility] GFR ESTIMATE 74(L) >90 ML/MIN/1.7 3 M2 02/04/2025 10:48 AM [facility] Comment: NOTE: eGFR is not calculated for patients <18 years of age. This is an estimated GFR calculation using the new CKD EPI creatinine equation without race and so does not require a correction factor for race. This estimated GFR should not be used for calculating drug doses. BLOOD VENOUS BLOOD SPECIMEN / Unknown 02/04/2025 10:29 AM EMPLOYMENT INTERVIEWER Abdiel Owen MD LABORATORY Final Result [facility] [address] [place] [address], [place] [phone] * (ABNORMAL) CBC W/DIFF (02/04/2025 10:29 AM EMPLOYMENT INTERVIEWER) WBC 11.15(H) 4.4 - 11.0 x10'3/uL 02/04/2025 10:35 AM [facility] RBC 4.75 4.50 - 5.10 x10'6/uL 02/04/2025 10:35 AM [facility] HGB 14.2 12.3 - 15.3 G/DL 02/04/2025 10:35 AM [facility] HCT 43.5 35.9 - 44.6 % 02/04/2025 10:35 AM [facility] MCV 91.6 80.0 - 96.0 FL 02/04/2025 10:35 AM [facility] MCH 29.9 25.3 - 30.9 PG 02/04/2025 10:35 AM [facility] MCHC 32.6 31.0 - 34.1 G/DL 02/04/2025 10:35 AM [facility] RDW 13.2 12.4 - 15.1 % 02/04/2025 10:35 AM [facility] PLT 221 151 - 353 x10'3/uL 02/04/2025 10:35 AM [facility] MPV 10.8 9.6 - 12.0 FL 02/04/2025 10:35 AM [facility] RBC MORPHOLOGY NORMAL 02/04/2025 10:35 AM [facility] PLT MORPH. NORMAL 02/04/2025 10:35 AM [facility] WBC MORPHOLOGY NORMAL 02/04/2025 10:35 AM [facility] LYMPHOCYTES % 9.3(L) 15.8 - 45.0 % 02/04/2025 10:35 AM [facility] NEUTROPHILS % 77.9(H) 42.1 - 71.9 % 02/04/2025 10:35 AM [facility] MONOCYTES % 9.8 5.7 - 12.5 % 02/04/2025 10:35 AM [facility] EOSINOPHILS 2.2 0.0 - 5.6 % 02/04/2025 10:35 AM [facility] BASOPHILS 0.3 0.0 - 1.3 % 02/04/2025 10:35 AM [facility] ABS. NEUTROPHILS 8.69(H) 1.40 - 6.00 x10'3/uL 02/04/2025 10:35 AM [facility] IMMATURE GRANS % 0.5 0.0 - 0.5 % 02/04/2025 10:35 AM [facility] ABS. LYMPHOCYTES 1.04 0.80 - 4.70 x10'3/uL 02/04/2025 10:35 AM [facility] BLOOD VENOUS BLOOD SPECIMEN / Unknown 02/04/2025 10:29 AM EMPLOYMENT INTERVIEWER us Abdiel Owen MD LABORATORY Final Result [facility] [address] [place] [address], * (ABNORMAL) Urinalysis, Auto, Complete (02/04/2025 9:45 AM [facility]) COLOR (U) YELLOW 02/04/2025 10:06 AM [facility] TRANSPARENCY CLEAR 02/04/2025 10:06 AM [facility] SPECIFIC GRAVITY (U) <1.005 1.000 - 1.030 02/04/2025 10:06 AM [facility] U PH 6.5 5.0 - 9.0 02/04/2025 10:06 AM [facility] LEUKOCYTES (U) 1+(A) NEGATIVE 02/04/2025 10:06 AM [facility] NITRITES NEGATIVE NEGATIVE 02/04/2025 10:06 AM [facility] PROTEIN RANDOM (U) NEGATIVE NEGATIVE 02/04/2025 10:06 AM [facility] GLUCOSE (U) NEGATIVE NEGATIVE 02/04/2025 10:06 AM [facility] KETONES MG/DL (U) NEGATIVE NEGATIVE 02/04/2025 10:06 AM [facility] BILIRUBIN (U) NEGATIVE NEGATIVE 02/04/2025 10:06 AM [facility] BLOOD (U) 1+(A) NEGATIVE 02/04/2025 10:06 AM [facility] WBC/HPF 0-5 0 - 5 /HPF 02/04/2025 10:06 AM [facility] RBC/HPF 5-10 0 - 5 /HPF 02/04/2025 10:06 AM [facility] EPI/HPF RARE /HPF 02/04/2025 10:06 AM [facility] BACTERIA (U) RARE /HPF 02/04/2025 10:06 AM [facility] URINE URINE SPECIMEN OBTAINED BY CLEAN CATCH PROCEDURE / Unknown 02/04/2025 9:45 AM EMPLOYMENT INTERVIEWER Abdiel Owen MD URINE ORDERABLES Final Result [facility] [address] [place] [address], [place] [phone] from Last [address] [facility] Care Teams Bushing Press Operator Relationship Specialty Start Date End Date Ilia Granados MD [address] [place] [address] PCP - General FAMILY PRACTICE 02/04/25
--- OUTSIDE RECORDS SUMMARY | 2025-02-27 07:58 | XMS_ITS | Clinical Summary ---
Author Organization [facility] [employer] Address [address] [facility] [place] [address] Care Team Providers Care Confidential Investigator Name Role Phone Ilia Granados MD Primary Care Provider [phone] Source Comments [facility],non-owned Affiliates and Associated Physician Practices is amultiple site organization consisting of ambulatory clinics and hospital sitesin [place], [place], [place] and [place]. This disclosure is being madepursuant to the Care Everywhere program and may not contain all information available regarding this patient. Last updated 17.[facility] [employer] Allergies Active Allergy Reactions Criticality Noted Date [...] complete this topic Insurance MEDICARE Care Teams Confidential Investigator Relationship Specialty Start Date End Date Ilia Granados MD [address] [facility] [address] [place] [address] PCP - General Family Medicine 10/12/22
--- OUTSIDE RECORDS SUMMARY | 2025-02-27 07:58 | XMS_ITS | Clinical Summary ---
Author Organization [facility] Address [facility] [place] [address] Care Team Providers Care Ginseng Farmer Name Role Phone Socorro CAMACHO MD, Leonel Arboleda Primary Care Provid er Nicki Morel MD Unavailable [phone] Allergies No known active allergies Medications cholecalciferol [...] Plan of Treatment Not on file Insurance [facility] CLAIMS Care Teams Ginseng Farmer Relationship Specialty Start Date End Date Leonel Quintanilla II, MD PCP - General Family Practice 10/31/19 Nicki Morel MD Obstetrics and Gynecology 10/31/19
== END 2025-02-27 07:53 | disposition home or self-care (01) ==
PROVIDERS: PCP Family Medicine; Visit Provider Physician Assistant Medical
DX: R79.89 Other specified abnormal findings of blood chemistry (principal); K82.4 Cholesterolosis of gallbladder
CPT/HCPCS: 76705

== ENCOUNTER 2025-03-03 13:11 | Outpatient (CLI) | payer MEDICARE, OTHER, SELFPAY ==
--- NOTE | ~2025-03-03 | DEXA_ITS ---
Bone Density Report Name: NAYELI RICO Age: 70 Sex: Female Ethnicity: White Date of : 1955 Indication: osteopenia; height loss; Referring Provider: ARUNA MCKOY Study: Bone densitometry was performed. Exam Date: March 03, 2025 Accession number: [id number] Bone Density: Region BMD T-score Z-score Classification AP Spine(L1, L4) 0.846 -1.7 0.2 Osteopenia Femoral Neck (Left) 0.568 -2.5 -0.8 Osteoporosis Total Hip (Left) 0.789 -1.3 0.1 Osteopenia Femoral Neck (Right) 0.573 -2.5 -0.8 Osteoporosis Total Hip (Right) 0.735 -1.7 -0.3 Osteopenia Total Hip Mean 0.762 -1.5 -0.1 Osteopenia World Health Organization criteria for BMD impression classify patients as: Normal (T-score at or above -1.0), Osteopenia (T-score between -1.0 and -2.5), or Osteoporosis (T-score at or below -2.5). 10-year Fracture Risk: FRAX not reported because: Some T-score for Spine Total or Hip Total or Femoral Neck at or below -2.5 Previous Exams: Region Exam Age BMD T-score BMD Change BMD Change Date g/cm2 vs Baseline vs Previous AP Spine (L1,L4) 03/03/2025 70 0.846 -1.7 0.018 (2.2%) 0.006 (0.7%) 02/21/2023 68 0.840 -1.8 0.012 (1.4%) -0.018 (-2.0%) 06/19/2018 63 0.858 -1.6 0.029 (3.6%)* 0.029 (3.6%)* 08/14/2014 59 0.828 -1.9 Total Hip(Left) 03/03/2025 70 0.789 -1.3 0.064 (8.8%)* -0.003 (-0.4%) 02/21/2023 68 0.792 -1.2 0.067 (9.2%)* -0.013 (-1.7%) 06/19/2018 63 0.806 -1.1 0.080 (11.0%)* 0.080 (11.0%)* 08/14/2014 59 0.726 -1.8 Total Hip(Right) 03/03/2025 70 0.735 -1.7 -0.008 (-1.1%) 0.005 (0.7%) 02/21/2023 68 0.731 -1.7 -0.013 (-1.8%) -0.050 (-6.4%) 06/19/2018 63 0.781 -1.3 0.037 (5.0%)* 0.037 (5.0%)* 08/14/2014 59 0.744 -1.6 *Denotes significance at 95% confidence level, LSC for AP Spine = 0.022 g/cm2, LSC for Total Hip = 0.027 g/cm2 Clinical Information Provided by Patient: Has used the following medications: Boniva (i.e. ibandronate), Vitamin D, Calcium Patient maximum height was 63 Menopause Age: 55 No regular weight bearing exercise Does not regularly consume dairy products Drinks caffeinated beverages Onset of menses at age 17 Number of children 2 Impression: The patient has osteoporosis, based on the Left Femoral Neck T-score. No significant bone loss was observed. Discussion: INCREASED RISK OF FRACTURE. BONE DENSITY IS UNDESIRABLY LOW AT ONE OR MORE SKELETAL SITES, CONSISTENT WITH POSTMENOPAUSAL OSTEOPOROSIS. This patient's lowest T-score meets the World Health Organization's (WHO) criteria for osteoporosis at one or more sites (T-score -2.5 or below). In untreated patients, the risk of osteoporotic fracture increases approximately two-fold for each 1.0 SD decrease in T-score. Low bone density is not the only risk factor for fracture; also consider factors such as patient's age, frailty or poor health, risk of falling, risk of injury, previous osteoporotic fracture, family history of osteoporosis, cigarette smoking, low body weight, etc. Not everyone with low bone mineral density has osteoporosis; osteomalacia and other metabolic bone disorders should also be considered. Patients who have osteoporosis should be evaluated for specific diseases and conditions (secondary causes) that may cause or contribute to bone loss. The [place] Association of Clinical Endocrinologists (AACE) and National Osteoporosis Foundation (NOF) recommend pharmacologic intervention for all postmenopausal women whose T-score is in this range. The patient should follow a healthful lifestyle (good nutrition with adequate calcium and vitamin D, and appropriate weight-bearing exercise). Follow-Up: Consider a repeat BMD and Vertebral Fracture Assessment (VFA) exam in 2 years or sooner if medically necessary, to reassess this patient's status. Reported by: RIVER on 03/03/2025 2:39:00 PM. Reviewed, dictated and finalized at location A.
== END 2025-03-03 13:12 | disposition home or self-care (01) ==
LOC: ANHFOHIMG 13:12
PROVIDERS: PCP Family Medicine; Visit Provider Physician Assistant
DX: M81.0 Age-related osteoporosis without current pathological fracture (principal); M85.89 Other specified disorders of bone density and structure, multiple sites
CPT/HCPCS: 77080

== ENCOUNTER 2025-03-04 11:59 | Outpatient (CLI) | payer MEDICARE, OTHER, SELFPAY ==
--- NOTE | ~2025-03-04 | PE_ITS ---
EXAMINATION: PET skull to mid thigh DATE: 03/04/2025 14:04 INDICATION: Lung nodules aren't enlarged lymph nodes TECHNIQUE: Blood glucose level was 84 mg/dL. 10.724 mCi of 18-fluorodeoxyglucose (18-FDG) was administered i.v. Low dose computed tomography (CT) images were acquired from the base of the brain to the proximal thighs for attenuation correction and anatomic localization. Positron emission tomography (PET) images were acquired in the same distribution beginning 54 minutes after injection. Images including fused PET/CT images were reconstructed in axial, coronal, and sagittal planes. Automated exposure control technique was employed. The dose- length product was 852.30mGy-cm. COMPARISON: None FINDINGS: Head/neck: There is symmetric increased activity in the oral cavity, palatine tonsils, parotid glands, submandibular glands, laryngeal muscles and ocular muscles without CT correlate, likely physiologic. No pathologically enlarged cervical lymphadenopathy or suspicious foci of increased FDG uptake in the visualized head or neck. Chest: Persistent mild increased FDG uptake associated with a centrally calcified nodule right upper lobe which along with calcified left hilar and mediastinal lymph nodes are consistent with sequela of old granulomatous disease. There are 3 small FDG avid soft tissue density nodules at the bifurcations of pulmonary arteries in the right upper lobe which are unable to be clearly distinguished from the vasculature but measuring <1 cm with maximal SUV values of 3.8, 3.9 and 5.2 which may represent small intrapulmonary lymph nodes. These also demonstrate subtle calcification on the earlier chest CT suggesting sequela of granulomatous disease. There is a tiny focus of mild FDG uptake with maximal SUV of 4.3 p osition along the posterior left third rib which appears to correspond to a 7 x 5 mm pulmonary nodule in the prior CT. There multiple bilateral mild to moderately FDG avid bilateral hilar and mediastinal lymph nodes which do not appear pathologically enlarged. These include maximal SUV values of 9.1 at the left hilum, 6.3 at the right hilum and 9.3 in the right paratracheal region. There are also 3 tiny foci of increased FDG activity along the right internal mamillary vasculature with maximal SUV values of up to 3.7 likely associated with additional lymph nodes too small to be clearly distinguished. For reference one of the largest lymph nodes is a subcarinal lymph node measuring 11 mm in maximal short axis diameter with maximal SUV of 10.2. There is also a para- aortic lymph node near the thoracic hiatus which measures 8 mm in maximal short axis diameter and with maximal SUV of 8.0. There is a 5 mm anterior right epiphrenic lymph node with maximal SUV of 5.8. Heart size is normal. No pericardial effusion. Thoracic aorta is normal in caliber. Abdomen/pelvis/proximal thighs: Physiologic renal accumulation and excretion of FDG activity in the kidneys, bladder and along portions of ureters. Normal degree and heterogenous pattern of increased uptake throughout the liver without radiologic correlate or dominant FDG avid lesion. The gallbladder, pancreas, spleen and bilateral adrenal glands are normal. Mild uptake scattered throughout the bowels without radiologic correlate, also likely physiologic. The uterus and bilateral adnexa are unremarkable. Mild sigmoid diverticulosis without adjacent comparison to suggest diverticular colitis. Normal appendix. There are multiple mildly prominent but not pathologically enlarged FDG avid lymph nodes in the abdomen and pelvis. These include 10 mm periportal lymph node with maximal SUV of 14.1, a 9 mm short axis diameter aortocaval lymph node with maximal SUV of 14.7 and a few infrarenal left para-aortic lymph nodes measuring up to 9 mm in maximal short axis diameters with maximal SUV values of 14.4. There is a right external iliac chain lymph node measuring 7 mm in maximal short axis diameter with maximal SUV of 7.9. Musculoskeletal: Severe cervical and lumbar spondylosis. There is diffuse mild marrow activity without radiologic correlate in the spine, pelvis and proximal femoral diaphyses. No suspicious lytic, blastic or focally more intense FDG avid bone lesions. IMPRESSION: 1. Multiple mild to moderately FDG avid lymph nodes which side from a minimally enlarged subcarinal lymph node remain within normal limits in size which favors reactive lymph nodes although early lymphoma or metastatic disease cannot be absolutely excluded. None of the FDG avid lymph nodes are easily accessible for biopsy and would recommend correlation with any prior outside imaging and consider follow-up CT of the chest and abdomen in 3-6 months. 2. Mild FDG uptake such with a few centrally calcified nodule right upper lobe likely related to granulomatous disease. 3. Nonspecific diffuse mild increased marrow activity without corresponding lytic or blastic bone lesions which can be seen with marrow stimulation. Reviewed, dictated and finalized at location A. [employer] IMPRESSION: 1. Multiple mild to moderately FDG avid lymph nodes which side from a minimally enlarged subcarinal lymph node remain within normal limits in size which favor s reactive lymph nodes although early lymphoma or metastatic disease cannot be absolutely excluded. None of the FDG avid lymph nodes are easily accessible for biopsy and would recommend correlation with any prior outside imaging and cons ider follow-up CT of the chest and abdomen in 3-6 months. 2. Mild FDG uptake such with a few centrally calcified nodule right upper lobe likely related to granulomatous disease. 3. Nonspecific diffuse mild increased marrow activity without corresponding lyt ic or blastic bone lesions which can be seen with marrow stimulation.
== END 2025-03-04 12:00 | disposition home or self-care (01) ==
PROVIDERS: PCP Family Medicine; Visit Provider Physician Assistant Medical
DX: R91.8 Other nonspecific abnormal finding of lung field (principal); R59.9 Enlarged lymph nodes, unspecified
CPT/HCPCS: 78815; A9552

== ENCOUNTER 2025-03-18 15:23 | Outpatient (CLI) | payer MEDICARE, OTHER, SELFPAY ==
--- NOTE | ~2025-03-18 | MM_ITS ---
EXAMINATION: MM screening caio BI w caitlin HISTORY: Screening. TECHNIQUE: Craniocaudal and mediolateral oblique 3-D tomosynthesis images were obtained and synthetic 2-D images were generated. CAD analysis was submitted and interpreted. COMPARISON: 2023, 2022, and 2021. BREAST PARENCHYMAL COMPOSITION: Dense: The breasts are heterogeneously dense tissue. FINDINGS: No suspicious masses are seen. There are no suspicious calcifications. No unexplained architectural distortion is seen. There are no skin or nipple abnormalities identified. There is no adenopathy seen on the images submitted. IMPRESSION: No mammographic evidence to suggest malignancy is seen. The patient may return to screening mammography as per ACR guidelines. BI-RADS 1 - Negative. Reviewed, dictated and finalized at location C. OL LABORATORY TECHNICIAN
--- OUTSIDE RECORDS SUMMARY | 2025-03-18 15:28 | XMS_ITS | Clinical Summary ---
Author Organization [facility] Address [facility] [place] [address] Care Team Providers Care Biometrics Specialist Name Role Phone Socorro CAMACHO MD, Leonel Arboleda Primary Care Provid er Nicki Morel MD Unavailable [phone] Allergies No known active allergies Medications cholecalciferol [...] Plan of Treatment Not on file Insurance [facility] CLAIMS Care Teams Biometrics Specialist Relationship Specialty Start Date End Date Leonel Quintanilla II, MD PCP - General Family Practice 10/31/19 Nicki Morel MD Obstetrics and Gynecology 10/31/19
--- OUTSIDE RECORDS SUMMARY | 2025-03-18 15:28 | XMS_ITS | Clinical Summary ---
Author Organization [facility] Address [address] [facility] [place] [address] Care Team Providers Care Grainer Machine Name Role Phone Ilia Granados MD Primary Care Provider [phone] Source Comments [facility],non-owned Affiliates and Associated Physician Practices is amultiple site organization consisting of ambulatory clinics and hospital sitesin [place], [place], [place] and [place]. This disclosure is being madepursuant to the Care Everywhere program and may not contain all information available regarding this patient. Last updated 17.[facility] Allergies Active Allergy Reactions Criticality Noted Date [...] complete this topic Insurance MEDICARE Care Teams Grainer Machine Relationship Specialty Start Date End Date Ilia Granados MD [address] [facility] [address] [place] [address] PCP - General Family Medicine 10/12/22
--- OUTSIDE RECORDS SUMMARY | 2025-03-18 15:28 | XMS_ITS | Clinical Summary ---
Author Organization [facility] Address [address] [place] [address] Care Team Providers Care Qualifications Examiner Name Role Phone Ilia Granados MD Primary Care Provider [phone] Allergies Active Allergy Reactions Criticality Noted Date [...] needed for Wheezing. 18 g 02/06/2022 Active Encounters Date Type Department Care Team Description 02/04/2025 9:25 AM DIESEL TRUCK DRIVER - 02/04/2025 12:05 PM DIESEL TRUCK DRIVER Emergency [facility] Emergency Room [address] [place] [id number] Abdiel Owen MD Urinary Symptoms Discharge Disposition: [...] on file Legal Sex Female 3:16 PM DIESEL TRUCK DRIVER Gender Identity Not on file Sexual Orientation Not on file Last Filed Vital Signs Vital Sign Reading Time Taken Comments Blood Pressure 158/94 02/04/2025 12:04 PM [employer]EL TRUCK DRIVER Pulse 80 02/04/2025 12:04 PM [employer]EL TR[employer] DRIVER Temperature 36.6 C (97.9 F) 02/04/2025 12:04 PM [employer]EL TRUCK DRIVER Respiratory Rate 18 02/04/2025 12:04 PM [employer]EL TRUCK DRIVER Oxygen Saturation 98% 02/04/2025 12:04 PM [employer]EL TRUCK DRIVER Inhaled Oxygen Concentration - - Weight 68 kg (150 lb) 02/04/2025 9:36 AM [employer]EL TRUCK DRIVER Height 157.5 cm (5' 2) 02/04/2025 9:36 AM D[employer]EL TRUCK DRIVER Body Mass Index 27.44 02/04/2025 9:36 AM DIESEL TRUCK DRIVER Plan of Treatment Health Maintenance Due Date Last Done Comments Colorectal Cancer Screening Colonoscopy (10 Years) 1957 Hepatitis C 1975 DTaP, Tdap and Td Vaccines (1 - Tdap) 01/20/1976 Mammogram Screening 1997 Pneumococcal Vaccine: 50+ Years (1 of 1 - PCV) 2007 Zoster Vaccines (2 of 2) 08/20/2018 06/25/2018 Annual Medicare Wellness Visit 2022 Dexa Scan (General) 2022 COVID-19 Vaccine (5 - season) 2024 12/19/2021, 04/11/2021, 07/13/2020, Additional history exists Influenza Adult (#1) 2024 02/05/2020, 12/27/19 RSV Immunization or 60+ Years (1 - [...] ABD+PEL KIDNEY STONE STAT 02/04/2025 10:39 AM DIESEL TRUCK DRIVER COMPREHENSIVE METABOLIC PANEL STAT 02/04/2025 10:29 AM DIESEL TRUCK DRIVER HC CBC AUTO W/AUTO DIFF STAT 02/04/2025 10:29 AM DIESEL TRUCK DRIVER URINALYSIS, AUTO, COMPLETE STAT 02/04/2025 9:45 AM DIESEL TRUCK DRIVER from Last 3 Months Results * CT ABD+PEL KIDNEY STONE (02/04/2025 10:39 AM DIESEL TRUCK DRIVER) Anatomical Region Laterality Modality Abdomen Computed Tomogra phy 02/04/2025 10:4 9 AM DIESEL TRUCK DRIVER Impressions 02/04/2025 10:54 AM DIESEL TRUCK DRIVER IMPRESSION: 1. Mild bilateral hydronephrosis and hydroureter, [...] 02/04/2025 10:49 AM Narrative 02/04/2025 10:54 AM DIESEL TRUCK DRIVER [place] [id number] [facility] [place] [address] EXAMINATION: CT ABDOMEN PELVIS WITHOUT CONTRAST EXAM [...] Procedure Note Renato North MD - 02/04/2025 [facility] [address] [place] [address] EXAMINATION: CT ABDOMEN PELVIS WITHOUT CONTRAST EXAM [...] (ABNORMAL) COMPREHENSIVE METABOLIC PANEL (02/04/2025 10:29 AM DIESEL TRUCK DRIVER) GLUCOSE 91 70 - 99 MG/DL 02/04/2025 10:48 AM [facility] BUN 12 7 - 18 MG/DL 02/04/2025 10:48 AM [facility] CREATININE S/P/B 0.86 0.55 - 1.02 MG/DL 02/04/2025 10:48 AM [facility] SODIUM S/P/B 140 136 - 145 MMOL/L 02/04/2025 10:48 AM [facility] POTASSIUM S/P/B 4.0 3.5 - 5.1 MMOL/L 02/04/2025 10:48 AM [facility] CHLORIDE S/P/B 104 100 - 108 MMOL/L 02/04/2025 10:48 AM [facility] CO2 28.8 21 - 32 MMOL/L 02/04/2025 10:48 AM [facility] CALCIUM S/P/B 8.8 8.5 - 10.1 MG/DL 02/04/2025 10:48 AM [facility] BILIRUBIN TOTAL S/P/B 0.8 0.2 - 1.2 MG/DL 02/04/2025 10:48 AM [facility] TOTAL PROTEIN S/P/B 7.7 6.4 - 8.2 G/DL 02/04/2025 10:48 AM [facility] ALBUMIN S/P/B 3.6 3.4 - 5.0 G/DL 02/04/2025 10:48 AM [facility] AST 91(H) 15 - 37 U/L 02/04/2025 10:48 AM [facility] ALT 138(H) 14 - 55 U/L 02/04/2025 10:48 AM [facility] ALKALINE PHOSPHATASE S/P/B 121 50 - 136 U/L 02/04/2025 10:48 AM [facility] ANION GAP 7.2 5 - 15 MMOL/L 02/04/2025 10:48 AM [facility] BUN CREATININE RATIO 14.0 6 - 26 02/04/2025 10:48 AM [facility] A/G RATIO 0.9(L) 1.0 - 2.0 RATIO 02/04/2025 10:48 AM [facility] GFR ESTIMATE 74(L) >90 ML/MIN/1.7 3 M2 02/04/2025 10:48 AM [facility] Comment: NOTE: eGFR is not calculated for patients <18 years of age. This is an estimated GFR calculation using the new CKD EPI creatinine equation without race and so does not require a correction factor for race. This estimated GFR should not be used for calculating drug doses. BLOOD VENOUS BLOOD SPECIMEN / Unknown 02/04/2025 10:29 AM [facility] Abdiel Owen MD LABORATORY Final Result [facility] [address] [place] [address], * (ABNORMAL) CBC W/DIFF (02/04/2025 10:29 AM DIESEL TRUCK DRIVER) WBC 11.15(H) 4.4 - 11.0 x10'3/uL 02/04/2025 10:35 AM [facility] RBC 4.75 4.50 - 5.10 x10'6/uL 02/04/2025 10:35 AM [facility] HGB 14.2 12.3 - 15.3 G/DL 02/04/2025 10:35 AM [facility] HCT 43.5 35.9 - 44.6 % 02/04/2025 10:35 AM [facility] MCV 91.6 80.0 - 96.0 FL 02/04/2025 10:35 AM [facility] MCH 29.9 25.3 - 30.9 PG 02/04/2025 10:35 AM [facility] MCHC 32.6 31.0 - 34.1 G/DL 02/04/2025 10:35 AM [facility] RDW 13.2 12.4 - 15.1 % 02/04/2025 10:35 AM [facility] PLT 221 151 - 353 x10'3/uL 02/04/2025 10:35 AM [facility] MPV 10.8 9.6 - 12.0 FL 02/04/2025 10:35 AM [facility] RBC MORPHOLOGY NORMAL 02/04/2025 10:35 AM [facility] PLT MORPH. NORMAL 02/04/2025 10:35 AM D[employer]EL TRUCK DRIVER [facility] WBC MORPHOLOGY NORMAL 02/04/2025 10:35 AM [facility] LYMPHOCYTES % 9.3(L) 15.8 - 45.0 % 02/04/2025 10:35 AM [facility] NEUTROPHILS % 77.9(H) 42.1 - 71.9 % 02/04/2025 10:35 AM [facility] MONOCYTES % 9.8 5.7 - 12.5 % 02/04/2025 10:35 AM [facility] EOSINOPHILS 2.2 0.0 - 5.6 % 02/04/2025 10:35 AM [facility] BASOPHILS 0.3 0.0 - 1.3 % 02/04/2025 10:35 AM [facility] ABS. NEUTROPHILS 8.69(H) 1.40 - 6.00 x10'3/uL 02/04/2025 10:35 AM [facility] IMMATURE GRANS % 0.5 0.0 - 0.5 % 02/04/2025 10:35 AM [facility] ABS. LYMPHOCYTES 1.04 0.80 - 4.70 x10'3/uL 02/04/2025 10:35 AM [facility] BLOOD VENOUS BLOOD SPECIMEN / Unknown 02/04/2025 10:29 AM [facility] us Abdiel Owen MD LABORATORY Final Result [facility] [address] [place] [address], * (ABNORMAL) Urinalysis, Auto, Complete (02/04/2025 9:45 AM DIESEL TRUCK DRIVER) COLOR (U) YELLOW 02/04/2025 10:06 AM [facility] TRANSPARENCY CLEAR 02/04/2025 10:06 AM [facility] SPECIFIC GRAVITY (U) <1.005 1.000 - 1.030 02/04/2025 10:06 AM [facility] U PH 6.5 5.0 - 9.0 02/04/2025 10:06 AM [facility] LEUKOCYTES (U) 1+(A) NEGATIVE 02/04/2025 10:06 AM [facility] NITRITES NEGATIVE NEGATIVE 02/04/2025 10:06 AM [facility] PROTEIN RANDOM (U) NEGATIVE NEGATIVE 02/04/2025 10:06 AM [facility] GLUCOSE (U) NEGATIVE NEGATIVE 02/04/2025 10:06 AM [facility] KETONES MG/DL (U) NEGATIVE NEGATIVE 02/04/2025 10:06 AM [facility] BILIRUBIN (U) NEGATIVE NEGATIVE 02/04/2025 10:06 AM [facility] BLOOD (U) 1+(A) NEGATIVE 02/04/2025 10:06 AM [facility] WBC/HPF 0-5 0 - 5 /HPF 02/04/2025 10:06 AM [facility] RBC/HPF 5-10 0 - 5 /HPF 02/04/2025 10:06 AM [facility] EPI/HPF RARE /HPF 02/04/2025 10:06 AM [facility] BACTERIA (U) RARE /HPF 02/04/2025 10:06 AM [facility] URINE URINE SPECIMEN OBTAINED BY CLEAN CATCH PROCEDURE / Unknown 02/04/2025 9:45 AM DIESEL TRUCK DRIVER Abdiel Owen MD URINE ORDERABLES Final Result [facility] [address] [place] [address], from Last 3 Months Insurance MEDICARE [facility] Care Teams Qualifications Examiner Relationship Specialty Start Date End Date Ilia Granados MD [address] [place] [address] PCP - General FAMILY PRACTICE 02/04/25
== END 2025-03-18 15:24 | disposition home or self-care (01) ==
LOC: ANHFOHIMG 15:26
PROVIDERS: PCP Family Medicine; Visit Provider Nurse Practitioner
DX: Z12.31 Encounter for screening mammogram for malignant neoplasm of breast (principal)
CPT/HCPCS: 77063; 77067